=== PATIENT | female | born 1925 | race Caucasian/White ===

== ENCOUNTER 2016-11-03 11:57 | Inpatient (IN) | payer MEDICARE ==
[~2016-11-03] VITALS: Ht 165.1 cm; Wt 60.6 kg
[~2016-11-03 11:57] MED LIST: ACYC400T PO; ALLO300T2 PO; FAMO-119 PO; HYDR-22 PO; LORA10TA7 PO; METO50TA7 PO; MTP25TSR PO; QTP25T PO; SENN-36 PO; TRAZ-28 PO
--- OUTSIDE RECORDS SUMMARY | 2016-11-03 12:02 | XMS REPORT | Summary of Care ---
Author Author Bandar Matias M.D. 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 Start 23-Jul-2016 Active Allergies and Adverse Reactions Name Dates Details CeleBREX CAPS (Allergy) Status: Active Celecoxib CAPS (Allergy) Status: Active clindamycin (Allergy) Status: Active Demerol SOLN (Allergy) Status: Active Meperidine HCl TABS (Allergy) Status: Active Penicillins (Allergy) Status: Active Procedures Procedure Dates Details History of Tonsillectomy History of Venous Ligation With Stripping History of Reported Hx Of Knee Replacement - Right Procedures not documented Immunization Name Dates Details Immunizations not documented Family History Name Dates Details Family history of lung disease (V19.8, Z83.6) Status: Active Social History Name Dates Details - Status: Name Dates Details Former smoker Vital Signs Date Test Result Details 22-Jul-2016 14:46 Temperature 98.9 f Status: Comments: Method: Heart Rate 74 /min Status: Comments: Location: ; Weight 140 lb Status: Results Date Description Value Details Results not documented Plan of Care Name Dates Details Planned Observations Planned Goals not documented Instructions Name Dates Details Instructions not documented Encounters Appointment; Bandar Matias M.D. Encounter Diagnosis: Problem not documented On 23-Jul-2016 14:00 Appointment; Bandar Matias M.D. Encounter Diagnosis: Problem not documented On 22-Jul-2016 14:30
[2016-11-03] MEDS ORDERED: MULT-1034 PO (12:59)
[2016-11-03] MEDS ORDERED: PSYL660P17 PO (12:59)
[2016-11-03] MEDS ORDERED: METO-270 PO (12:59)
[2016-11-03 13:37] LABS: MEAN CORPUSCULAR HGB CONC 34.4 g/dL (31.0-37.0); MEAN CORPUSCULAR VOLUME 93 FL (80-100); MEAN PLATELET VOLUME 10.3 FL (6.0-9.5); PLATELET COUNT 108 10^3uL (150-450); WHITE BLOOD COUNT 3.77 10^3uL (4.0-11.0)
[2016-11-03 13:51] LABS: MEAN CORPUSCULAR HEMOGLOBIN 31.8 PG (26.0-34.0)
[2016-11-03 13:55] LABS: ALBUMIN 4.1 g/dL (3.4-5.0); ANION GAP 14.6 MEQ/L (3-15); CALCULATED IONIZED CALCIUM 4.1 mg/dL (3.8-4.6); TOTAL PROTEIN 6.7 g/dL (6.4-8.5)
--- NOTE | 2016-11-03 14:01 | Diagnostic Imaging Report ---
INDICATION: Shortness of breath. Frontal chest obtained at 1:38 p.m. and compared with 12/03/2011 Heart is mildly enlarged. Aorta is tortuous. There are mild chronic-appearing increased interstitial markings. There is no pneumothorax or pleural fluid. There is some infiltrate or scarring in the right base which appears chronic or recurrent compared with 12/03/2011. Severe underlying degenerative changes of both shoulders. IMPRESSION: Mild cardiomegaly with tortuous aorta. Chronic-appearing increased interstitial markings. There is some infiltrate or scarring in the right base which appears chronic or recurrent compared with 12/03/2011. Suggest followup as clinically warranted. Dictated by: Dictated on workstation # [id number]
[2016-11-03 14:16] LABS: BAND NEUTROPHILS % 56 % (0-6); EOSINOPHILS % 2 % (0-4); LYMPHOCYTES # 0.2 #; MONOCYTES # 0.1 #; MONOCYTES % 4 % (3-11); SEGMENTED NEUTROPHILS % 33 % (51-67); TOTAL CELLS COUNTED 100
[2016-11-03 14:18] LABS: RBC MORPH NORMAL (NORMAL)
--- NOTE | 2016-11-03 14:31 | NUR ---
up to bathroom without difficulty
[2016-11-03 14:38] LABS: BILIRUBIN,URINE Negative (Negative); CLARITY,URINE Clear; GLUCOSE, URINE (UA) Negative (Negative); LEUKOCYTE ESTERASE ,URINE Negative (Negative); UROBILINOGEN,URINE 0.2 mg/dL (0.2-1.0)
[2016-11-03 14:42] LABS: COLOR,URINE Dark Yellow
[2016-11-03 15:20] LABS: URINE CENTRIFUGED VOLUME 12 mL
[2016-11-03] MEDS ORDERED: cefTRIAXone SODIUM 1,000 MG in SODIUM CHLORIDE 50 ML IV ONE (15:45)
--- NOTE | 2016-11-03 16:27 | NUR ---
rounds made, pt denies needs.
[2016-11-03] MEDS ORDERED: AZITHROMYCIN VIAL 500 MG in SODIUM CHLORIDE 250 ML IV ONE (16:55)
--- NOTE | 2016-11-03 17:26 | NUR ---
yolanda notified at [phone]
--- NOTE | 2016-11-03 18:05 | NUR ---
Patient admitted to room 315 per cart from ER. She denies pain. O2 sat. on 2 liters at rest= 87-88%. O2 was increased to 3 liters NC and sat. was 90-92%. Frequent cough and complaint of generalized "ill" feeling.
[2016-11-03 18:37] VITALS: BP 144/96
[2016-11-03 18:39] VITALS: BP 144/96
[2016-11-03] MEDS ORDERED: MAGNESIUM HYDROXIDE 80MG/ML (MILK OF MAGNESIA) 30 ML UDC PO PRN (19:40)
[2016-11-03] MEDS ORDERED: PROMETHAZINE HCL INJ 12.5 MG in SODIUM CHLORIDE 25 ML IV PRN (19:40)
[2016-11-03] MEDS ORDERED: DOCUSATE SODIUM 100 MG (COLACE) CAP PO PRN (19:40)
[2016-11-03] MEDS ORDERED: ONDANSETRON 4 MG (ZOFRAN) ORAL DISSOLVE TAB PO PRN (19:40)
[2016-11-03] MEDS ORDERED: MAG HYDROX/AL HYDROX/SIMETH 200-200-20/5 ML (MAG-AL PLUS) 30 ML UDC PO PRN (19:40)
[2016-11-03] MEDS ORDERED: CALCIUM CARBONATE CHEWABLE 300 MG (TUMS) TABLET PO PRN (19:40)
[2016-11-03] MEDS ORDERED: POLYETHYLENE GLYCOL 17 GM (MIRALAX) PACKET PO PRN (19:40)
[2016-11-03] MEDS ORDERED: ALBUTEROL 0.083% NEB SOLUTION 2.5 MG/3 ML VIAL INH PRN (19:40)
[2016-11-03] MEDS ORDERED: ACETAMINOPHEN 325 MG TAB (TYLENOL) PO PRN (19:40)
--- NOTE | 2016-11-03 19:47 | History and Physical (E) ---
History & Physical /PCP: Allan Cornell MD CC: Dyspnea, cough HPI Jina Campbell is a 89 year old female admitted from ED 11/03 where she presented with complaint of shortness of breath. Daughter helps provide history. Onset of illness was with cold symptoms the 10/26. She had congestion, cough, rhinorrhea. Cough was productive of phlegm. Other family members as well as patient were around other people with similar illness. All got better except Mrs. Campbell. Took guaifenesin for her cough and congestion which helped some. No fever, chills. Poor sleep because of cough and congestion. Eventually got to feeling bad enough that she planned to see PCP in office today but ultimately decided to come to ED instead. In ED, HR 105, RR 22, BP high at 197/98. Afebrile. SpO2 97% on 2 L. Had a wet cough. WBC 3.77, Hgb 12.1, Plt 108. 33% N with 56% bands. Chemsitry notable for mild AST and ALT elevation, AlkP 107, bili 1.1. CRP 22.80. UA negative for UTI. Respiratory PCR panel was negative. Pro-BNP was 2140. CXR showed some chronic changes but some areas that might represent new atelectasis vs. pneumonia. In ED she was given ceftriaxone, azithromycin, and was admitted for further management. PMH * arthritis * constipation * pneumonia * hard of hearing * CLL (Sees Dr. 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 ALLERGIES: Please see list at end of report. HOME MEDICATIONS: Please see list at end of report. FH Mom of old age at 92. Father had lung cancer. SH Lives in her own home in [place]. 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 Daughter lives in [place]. Quit smoking at age 34. Occasional alcohol. No drugs. ROS CONSTITUTION: Weight stable. No fever. HEENT: No change in vision or hearing. Sore throat from cough. CV: No chest pain, palpitations. PULM: per HPI, exam. GI: No upset stomach, nausea, vomiting, constipation, or diarrhea. No blood in stool. : No dysuria. No blood in urine. MS: Arthritic pains NEURO: Generalized deconditioning. INTEG: No rashes, lesions, or sores. ENDO: No new heat or cold intolerance. HEME/LYMPH: No easy bruising or bleeding. No swollen glands. PSYCH: No change in mood or behavior. OBJECTIVE Vital Signs Date Time Temp Pulse Resp B/P Pulse Ox O2 Delivery O2 Flow Rate FiO2 11/03/16 18:39 98.5 104 24 144/96 90 Nasal cannula GEN: Awake, alert, interactive. Speaking in full sentences but has mild respiratory distress. HEENT: EOMI, clear sclerae, mildly dry oral mucosa. CV: Tachy, but regular without significant murmur. LUNGS: Diminished breath sounds with some wheezes throughout. ABD: Soft, NT/ND with normal bowel sounds. EXTR: Trace ankle edema. Normal peripheral pulses. Warm, dry, well-perfused. INTEG: No rash. Age related changes. Dry skin. NEURO: No focal motor neuro deficit. Laboratory Results-14 Days 11/03/16 12:20: Absolute Band Neutrophils 1.7, Alanine Aminotransferase (ALT/SGPT) 56, Albumin 4.1#, Albumin/Globulin Ratio 1.576, Alkaline Phosphatase 107, Anion Gap 14.6, Aspartate Amino Transf (AST/SGOT) 65H, BUN/Creatinine Ratio 36H, Band Neutrophils % 56H, Basophils # (Auto) , Basophils # (Manual) 0.0, Basophils % ( Manual) 0, Basophils (%) (Auto) , Blood Morphology Comment Normal, Blood Urea Nitrogen 18, C-Reactive Protein 22.80H, Calcium Level 9.1, Calcium/Ionized Calcium Ratio 4.1, Calculated Osmolality 271L, Carbon Dioxide Level 28, Chloride Level 98, Creatinine 0.50L, Differential Total Cells Counted 100, Eosinophils # 0.1, Eosinophils # (Auto) , Eosinophils % (Manual) 2, Eosinophils (%) (Auto) , Estimat Glomerular Filtration Rate 140.9, Estimated GFR (Non- 116.4, Glucose Level 197#H, Hematocrit 35.20, Hemoglobin 12.1, Lymphocytes # 0.2, Lymphocytes # (Auto) , Lymphocytes % (Manual) 5L, Lymphocytes (%) (Auto) , Mean Corpuscular Hemoglobin 31.8, Mean Corpuscular Hemoglobin Concent 34.4, Mean Corpuscular Volume 93, Mean Platelet Volume 10.3H , Metamyelocytes % 0, Monocytes # 0.1, Monocytes # (Auto) , Monocytes % (Manual ) 4, Monocytes (%) (Auto) , LP-Msy-B-Type Natriuretic Peptide 2140H, Neutrophils # 1.2, Neutrophils # (Auto) , Neutrophils (%) (Auto) , Platelet Count 108L, Potassium Level 4.3, Red Blood Count 3.80L, Red Cell Distribution Width 13.8, Segmented Neutrophils % 33L, Sodium Level 136, Total Bilirubin 1.1H , Total Protein 6.7, White Blood Count 3.77L 11/03/16 13:32: Adenovirus (PCR) Negative, Bordetella parapertussis DNA (PCR) Negative, Chlamydophila pneumoniae (PCR) Negative, Coronavirus Type 229E (PCR) Negative, Coronavirus Type HKU1 (PCR) Negative, Coronavirus Type NL63 (PCR) Negative, Coronavirus Type OC43 (PCR) Negative, Enterovirus/Rhinovirus (PCR) Negative, Human Metapneumovirus (PCR) Negative, Influenza Type A (H1) (PCR) Negative, Influenza Virus Type B (PCR) Negative, Mycoplasma pneumoniae (PCR) Negative, Parainfluenza Type 1 (PCR) Negative, Parainfluenza Type 2 (PCR) Negative, Parainfluenza Type 3 (PCR) Negative, Parainfluenza Type 4 (PCR) Negative, Respiratory Syncytial Virus (PCR) Negative 11/03/16 14:10: Urine Bacteria None seen, Urine Bilirubin Negative, Urine Clarity Clear, Urine Collection Type Clean catch, Urine Color Dark yellow, Urine Glucose (UA) Negative, Urine Ketones Negative, Urine Leukocyte Esterase Negative, Urine Mucus Rare, Urine Nitrite Negative, Urine Protein TraceH, Urine RBC 10-20H, Urine RBC (Auto) 1+H, Urine Specific [place] 1.015, Urine Squamous Epithelial Cells 2-5, Urine Urobilinogen 0.2, Urine WBC None seen, Urine pH 6.0, Volume Urine Centrifuged 12 ml MICRO 11/03 Resp PCR Panel Negative 11/03 Sputum culture PENDING 11/03 Blood culture PENDING IMAGING 11/03/16 CHEST 1 VIEW, AP/PA ONLY* INDICATION: Shortness of breath. Frontal chest obtained at 1:38 p.m. and compared with 12/03/2011 Heart is mildly enlarged. Aorta is tortuous. There are mild chronic-appearing increased interstitial markings. There is no pneumothorax or pleural fluid. There is some infiltrate or scarring in the right base which appears chronic or recurrent compared with 12/03/2011. Severe underlying degenerative changes of both shoulders. IMPRESSION: Mild cardiomegaly with tortuous aorta. Chronic-appearing increased interstitial markings. There is some infiltrate or scarring in the right base which appears chronic or recurrent compared with 12/03/2011. Suggest followup as clinically warranted. 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 She does not have a prior diagnosis of COPD or asthma but was felt to have bronchospasm on admit. She has a few chronic problems. PLAN * SIRS/Sepsis * Acute Respiratory Distress: Oxygen protocol. Acapella. * Community Acquired Pneumonia: Blood culture pending. Sputum pending. Resp PCR panel negative. Guaifenesin, ceftriaxone, azithromycin. * Bronchospasm: Duoneb scheduled, albuterol PRN. Consider prescribing at discharge. May need PFT. * Dehydration: Mild. NS bolus on admit. I&O, daily weight. * F/E/N: General diet. IVF as above. Peripheral IV. * Prophylaxis: Enoxaparin * Code Status: DNR * Dispo: Inpatient, expecting 3 day stay. May need skilled care. CHRONIC ISSUES * HTN: Metoprolol * Constipation: Bowel regimen * Insomnia: Quetiapine Allergies/Home Medications Allergies: Coded Allergies: Penicillins (Verified Allergy, Unknown, 11/03/16) celecoxib (Verified Allergy, Unknown, 11/03/16) clindamycin (Verified Allergy, Unknown, 11/03/16) iodine (Verified Allergy, Unknown, 11/03/16) meperidine (Verified Allergy, Unknown, 11/03/16) naproxen (Verified Allergy, Unknown, 11/03/16) Reported Home Medications Scheduled Metoprolol Succinate (Metoprolol Succinate) 25 MG PO DAILY (Reported) Mu-Vits-Min Th/Lycopene/Lutein (Centrum Silver Tablet) 1 EACH PO DAILY (Reported ) Psyllium Husk (Metamucil) 660 GM PO DAILY (Reported) Quetiapine Fumarate (Seroquel) 25 MG PO HS (Reported) Discontinued Medications Acyclovir (Acyclovir) 400 MG PO BID (Reported) Discontinued Reason: No longer required Allopurinol (Allopurinol) 300 MG PO DAILY (Reported) Discontinued Reason: No longer required Famotidine (Pepcid) 20 MG PO (Reported) Discontinued Reason: Unknown Loratadine (Loratadine) 10 MG PO DAILY (Reported) Discontinued Reason: No longer required Metoprolol Succinate (Toprol XL) 50 MG PO DAILY (Reported) Discontinued Reason: Dose changed Sennosides (Senokot) 8.6 MG PO BID (Reported) Discontinued Reason: No longer required Trazodone HCl (Trazodone HCl) 50 MG PO PRN (Reported) Discontinued Reason: No longer required Copies to: End of Report . FRANCHESCA JOHN MD Nov 03, 2016 19:47
[2016-11-03 20:21] VITALS: BP 153/97
[2016-11-03] MEDS: QUEtiapine 25 MG (SEROquel) TAB IMMEDIATE RELEASE PO SCH (20:22)
[2016-11-03] MEDS: guaiFENesin ER 600 MG (MUCINEX) TAB PO SCH (20:23)
[2016-11-03] MEDS: ALBUTEROL/IPRATROPIUM 3MG-0.5MG/3ML (DUONEB) NEB VIAL INH SCH (20:39)
--- NOTE | 2016-11-03 20:43 | NUR ---
Pt found lying in bed on 3 l/min NC, SPO2 94%, HR 112, RR 18 and non labored, BS fine wheezes throughout all lung weber before Duoneb via SVN which was tolerated well. BS unchanged post Tx
--- NOTE | 2016-11-04 | NUR ---
PT IV occluded; SL discontinued, catheter tip intact. IV attempts made by Lillian Marie RN and Kanika Browne RN, all unsuccessful. 22G started to LFA by Eber Perez RN on second attempt. IVF restarted.
[2016-11-04 00:20] VITALS: BP 126/70
[2016-11-04 06:02] VITALS: BP 134/74
--- NOTE | 2016-11-04 06:25 | NUR ---
PT rests in short intervals. Frequently awakened by coughing fits. Denies pain. Able to walk to with staff assist/walker. IVF infusing w/o difficulty. Resp even on 3L oxygen per nc.
[2016-11-04 06:26] LABS: MEAN CORPUSCULAR HGB CONC 33.9 g/dL (31.0-37.0); MEAN CORPUSCULAR VOLUME 94 FL (80-100); MEAN PLATELET VOLUME 9.9 FL (6.0-9.5); PLATELET COUNT 96 10^3uL (150-450); WHITE BLOOD COUNT 3.92 10^3uL (4.0-11.0)
[2016-11-04 06:46] LABS: ALBUMIN 3.5 g/dL (3.4-5.0); ANION GAP 12.6 MEQ/L (3-15); PHOSPHORUS 2.9 mg/dL (2.4-4.9)
[2016-11-04 06:49] LABS: MEAN CORPUSCULAR HEMOGLOBIN 31.9 PG (26.0-34.0)
[2016-11-04 07:13] LABS: BAND NEUTROPHILS % 22 % (0-6); EOSINOPHILS % 2 % (0-4); LYMPHOCYTES # 0.3 #; MONOCYTES # 0.1 #; MONOCYTES % 2 % (3-11); RBC MORPH NORMAL (NORMAL); SEGMENTED NEUTROPHILS % 66 % (51-67); TOTAL CELLS COUNTED 100
[2016-11-04] MEDS: ALBUTEROL/IPRATROPIUM 3MG-0.5MG/3ML (DUONEB) NEB VIAL INH SCH ×4 (07:27→20:47)
--- NOTE | 2016-11-04 07:30 | NUR ---
Pt awake/alert/oriented x4. IV SL. Remains on 3L nc.
[2016-11-04] MEDS: MULTIVITAMIN W/MINERALS (THERAGRAN M) TABLET PO SCH (08:45)
[2016-11-04] MEDS: PSYLLIUM SF (METAMUCIL) PACKET PO SCH (08:45)
[2016-11-04] MEDS: guaiFENesin ER 600 MG (MUCINEX) TAB PO SCH ×2 (08:45→21:09)
[2016-11-04] MEDS: ENOXAPARIN 30 MG/0.3 ML (LOVENOX) SYR SC SCH ×2 (08:46→08:49)
--- NOTE | 2016-11-04 09:51 | OT Therapy Evaluation (E) ---
POC Plan of Care Problems Identified: Activity Tolerance, ADLs, Balance, Lt UE Strength, Rt UE Strength, Safety Awareness Plan: Evaluation-OT, ADL/Self Care Management, Therapy Exercises, Therapy Activities, Pt/Family/Staff Education Frequency of OT: Five times weekly Duration of OT: 1 week Therapy to Include: ADL training, Balance with ADLs, Pt/family education, Therapeutic activities, UE strengthing Discharge Recommendations: TCU/Skilled NH Pt presents to occupational therapy with decreased strength, balance concerns and decreased ability to complete self care tasks. Pt would benefit from skilled occupational therapy to increase independence with self care tasks for return to prior level of function with increased safety awareness. Pt. Aware of Dx and Prognosis: Yes Pt. Aware of Risk & Benefit: Yes Goals: Discussed with patient Short Term Goals STG Time Frame: 4 Days Will Perform Grooming: With Setup/SBA Will Dress Upper Extremity: With Setup/SBA Will do Bathing: With Min Assistance Will do Toileting: With Min Assistance Will Perform Funct Transfer: With Min Assistance STG #1 Pt will participate in 10 min of ther-ex with use of energy conservation techniques as needed. Penitentiary Goals LTG Time Frame: 7 Days Will Dress Upper Extremity: Independently Will Dress Lower Extremity: With Setup/SBA Will do Tub/Shower Transfer: With Setup/SBA Will Bathe Self: With Setup/SBA Will do Toilet Transfers: With Setup/SBA Will do Toilieting: With Setup/SBA Inital Evaluation/General Service Date/Time 11/04/16, 09:42 Primary Diagnosis: (1) Upper respiratory infection ICD Code: J06.9 Treatment Diagnosis: (1) Weakness ICD Code: R53.1 Onset Date: 10/26/16 Start of Care Date: Nov 04, 2016 Precaution/Isolation: Standard Precautions Fall Level: High Risk 51 or greater Resuscitation Status: Full Code Reason for Referral: Evaluation and Treat History Comment PMH of arthritis, constipation, pneumonia, hard of hearing, CLL, HTN, insomnia Pain Level: 0 Oxygen Needed: Nasal cannula O2 liters/minute: 3 Rehabilitation Potential: Good Potential Based On Patient's willingness to participate in therapy Rational for Skilled Treatment: Allow return to home, Deconditioning, Maximize Safety Living Status Prior to Admit: Alone ([facility]ives [facility] [place]. ) Prior Level of Function: Independent ADLs Prior to onset, pt completed all ADL's independently. Pt reports difficulty with manipulating everyday containers/jars. Reports using assistive devices and family to help. Pt completes simple IADL tasks of cooking, cleaning, medication management and shopping. Pt still drives. Plans Following Discharge: Return Home Support Persons: Adult Child (Has a daugther who lives in the area.) Entry Into Home: Level Entry Shower and Tub Type: Walk in/curtain-grab bars Assist Devices: SPC, 4 WW Toilet Type: Raised with grab bars Comment Pt uses a FWW in the home and a SPC in the community. Pt reports a history of 2 falls and no falls within the last six months. Pt wears a LifeAlert. Current Function Assessment Mental Status Patient Orientation: Person Mental Status: Alert Cognition Attention: Intact Memory: Impaired Safety/Judgement: Impaired Visual/Perceptual Skills Glassess: Yes (Lined trifocals ) Hearing: Impaired (Pt hard of hearing ) Hand Dominance Hand Dominance: Right ROM/Strength Range of Motion : ROM: Shoulder Limited ROM Comment Limited shoulder AROM secondary to arthritis. Grossly 80 degrees of shoulder flexion. Able to complete elbow flexion and extension. Strength Comment Elbow flexion and extension of BUE's of 4-/5 Neurological Coordination: Minimally impaired Endurance Activity Endurance: Becomes SOB, Needs energy saving techn Bed Mobility/Transfers Sit to Stand: Moderate assist Chair Transfer: Moderate assist Sitting Balance: WFL ADLs Grooming: Grooming Status: Minimum assist Dressing Dressing: Minimum assist Bathing Shower/Bench Transfer Ability: Moderate assist Bathing- Type of Assistance: Minimum Assist Toileting Toilet Hygiene: Moderate Assist Toilet Transfer Ability: Moderate assist Additional Assessment/Comments Pt presents with decreased strength, decreased safety awareness, decreased activity tolerance, decreased independence with self care tasks including dressing, bathing, toileting and grooming. Pt's comorbidity of arthritis affects patient's occupational performance. Pt demonstrates a moderate complexity due to performance deficits resulting in participation restrictions and requiring moderate assistance and safety cueing during the evaluation. CPT/G Codes Time In: 9:20 Time Out: 9:45 Total Minutes: 15 (11/15 eval) Codes/Minutes: 21418 Eval< 15 minutes TERRELL LOBO OT Nov 04, 2016 09:51
[2016-11-04 12:00] VITALS: BP 138/78
--- NOTE | 2016-11-04 12:30 | NUR ---
Pt remains on 3L nc. Daughter, Jo-Ann at bedside. Dr. Curiel at bedside for rounds.
[2016-11-04] MEDS ORDERED: PROMETHAZINE/CODEINE SYRUP 6.25MG-10MG/5ML (PHENERGAN W/COD) UDC PO PRN (12:40)
--- NOTE | 2016-11-04 15:05 | Physical Therapy Evaluation(E) ---
Plan of Care STG: Plan-Treatment Functional: Trans. Safe w/ AD STG Time Frame: 2 Days LTG Time Frame: 4 Days Goals Discussed/Agreed: Yes Plan: Gait & Transfer Training, Neuro Re-Education, Progressive Ambulation, Strengthening, Transfer Training, Therapy Excercise Discharge Recommendations: Home Independently (Additional therapy services recommended for strengthening and activity tolerance. ) Aware of Dx and Prognosis: Yes Aware of Risk & Benefit: Yes To be Seen: Daily Wednesday-Wednesday Initial Evaluation Service Date/Time 11/04/16, 15:04 Primary Diagnosis: (1) Upper respiratory infection ICD Code: J06.9 Treatment Diagnosis: (1) Community acquired pneumonia ICD Code: J18.9 (2) Sepsis ICD Code: A41.9 (3) SIRS (systemic inflammatory response syndrome) ICD Code: R65.10 (4) Weakness ICD Code: R53.1 Onset Date: 11/03/2016 Start of Care Date: Nov 04, 2016 Resuscitation Status: Full Code Precaution/Isolation: Standard Precautions Fall Level: High Risk 51 or greater Initial Assessment Reason for Rehab: Increase Mobility, Increase Strength, Increase Balance, Increase Transfers, Increase Endurance Medical History: Other (OA, pneumonia, CLL, HTN, insomnia. ) Pain Location/Comment Patient denies pain just reports fatigue. Prior Level of Function The patient lives in her own home. Still driving, independent with ADLS, cooking. Rehabilitation Potential: Fair (Patient was independent prior to hostpial admission. ) Distance Walked in Feet Patient refused to ambulate this date secondary to fatigue. ROM/Strength Hip Mobility: Right Hip Strength: 3 Left Hip Strength: 3 Knee Flexion Mobility: Right Knee Flexion Strength: 4 Left Knee Flexion Strength: 4 Knee Extension Mobility: Right Knee Extension Strength: 4 Left Knee Extension Strength: 4 Ankle Mobility: Right Ankle Strength: 4 Left Ankle Strength: 4 Assessment/Goals Initial Transfer Assessment Rolling: Not Assessed/NA Sit-Supine: Not Assessed/NA Sitting Edge of Bed: Not Assessed/NA Supine-Sit: Not Assessed/NA Sit-Stand from Bed: Not Assessed/NA Stand-Sit: Not Assessed/NA Ambulation: Not Assessed/NA (Patient refused to ambulate. ) Transfer Short Term Goals Rolling: Contact Guard Assist Sit-Supine: Minimal Assistance Sitting Edge of Bed: Contact Guard Assist Supine-Sit: Contact Guard Assist Sit-Stand from bed: Contact Guard Assist Stand-Sit: Contact Guard Assist Ambulation: Contact Guard Assist Distance to Walk in Feet A minimum of 50 feet x 2 with FWW on appropriate 02 level. Transfer [employer] Plant Supervisor Goals Rolling: Modified [place] Sit-Supine: Modified [place] Sitting Edge of Bed: Complete [place] Supine-Sit: Modified [place] Sit-Stand from bed: Supervision or setup Stand-Sit: Supervision or setup Ambulation: Supervision or setup Distance to Walk in Feet A minimum of 150 feet with FWW on appropriate 02 level. Coding Time In: 1400 Time Out: 1453 Total Minutes: 13 Code & Unit: 15732 Eval< 30 min GORDON MEHTA PT Nov 04, 2016 15:05
[2016-11-04 15:42] VITALS: BP 138/82
[2016-11-04] MEDS: cefTRIAXone SODIUM 1,000 MG in SODIUM CHLORIDE 50 ML IV SCH (17:00)
--- NOTE | 2016-11-04 17:26 | NUR ---
Pt. was anxious and SOA this AM. SOA decreasing this PM, also anxiety decreasing. O2 still at 2L nc, will attempt weaning tomorrow. Loose NPC today. BS coarse bilaterally, improving during the day.
--- NOTE | 2016-11-04 17:44 | Progress Note-A/P (E) ---
Progress Note Subjective: Patient is resting in bed quietly. Daughter is at bedside. Discussed current findings. Questions answered. Daughter has a DNR to have signed for the patient. Discussed with the daughter. When I returned to the patient's room to discuss with her she was in the bathroom. Will discuss with patient upon my next visit. Objective: Current Medications Metoprolol Succinate 25 mg DAILY PO Quetiapine 25 mg HS PO Multivitamins/ Minerals Therapeutic 1 ea DAILY@0800 PO Psyllium Hydrophilic Mucilloid 1 each DAILY PO Albuterol/ Ipratropium 3 ml RTQID INH Albuterol Sulfate 0.083% Neb Solution 2.5 mg Q4H PRN INH Guaifenesin 1,200 mg BID PO Ceftriaxone Q24H IV Azithromycin Q24H IV Acetaminophen 650 mg Q6H PRN PO Calcium Carbonate 300 mg Q8H PRN PO Al Hydrox/Mg Hydrox/Simethicone 30 ml Q6H PRN PO Ondansetron 4 mg Q6HR PRN PO Promethazine Q6H PRN IV Magnesium Hydroxide 30 ml DAILY PRN PO Polyethylene Glycol 17 gm DAILY PRN PO Docusate 100 mg BID PRN PO Enoxaparin 30 mg DAILY SC Promethazine 2.5 ml HS PRN PO Vital Signs Date Time Temp Pulse Resp B/P Pulse Ox O2 Delivery O2 Flow Rate FiO2 11/04/16 15:42 98.4 88 22 138/82 97 Room air I & O Past 24 hrs 11/04/16 07:00 Intake Total 350 ml Output Total 1200 ml Balance -850 ml Intake Oral 350 ml Output Urine Total 1200 ml # Bowel Movements 1 Physical Exam General--Awake and alert. No distress. HEENT--Normocephalic. MMM in oral cavity.NC in place. Lungs--Wheezes through out. Coarse bases bilaterally. Nonlabored respirations. Heart--RRR. No murmurs. Abdomen--Normal bowel sounds. Soft. Nondistended. Nontender. Extremities--Trace edema in lower extremities. Past 24 hour Lab Results 11/04/16 06:00 Laboratory Results Past 24 Hrs 11/04/16 06:00: Absolute Band Neutrophils 0.7, Albumin 3.5, Anion Gap 12.6, Band Neutrophils % 22, Basophils # (Auto) , Basophils # (Manual) 0.0, Basophils % (Manual) 0, Basophils (%) (Auto) , Blood Morphology Comment Normal, Blood Urea Nitrogen 15, Calcium Level 8.9, Carbon Dioxide Level 30, Chloride Level 103, Creatinine 0.50 , Differential Total Cells Counted 100, Eosinophils # 0.1, Eosinophils # (Auto) , Eosinophils % (Manual) 2, Eosinophils (%) (Auto) , Estimat Glomerular Filtration Rate 140.9, Estimated GFR (Non- 116.4, Glucose Level 113, Hematocrit 32.70, Hemoglobin 11.1, Lymphocytes # 0.3, Lymphocytes # (Auto) , Lymphocytes % (Manual) 8, Lymphocytes (%) (Auto) , Magnesium Level 2.0, Mean Corpuscular Hemoglobin 31.9, Mean Corpuscular Hemoglobin Concent 33.9, Mean Corpuscular Volume 94, Mean Platelet Volume 9.9, Monocytes # 0.1, Monocytes # ( Auto) , Monocytes % (Manual) 2, Monocytes (%) (Auto) , Neutrophils # 2.6, Neutrophils # (Auto) , Neutrophils (%) (Auto) , Phosphorus Level 2.9, Platelet Count 96, Potassium Level 4.3, Red Blood Count 3.48, Red Cell Distribution Width 13.9, Segmented Neutrophils % 66, Sodium Level 141, White Blood Count 3.92 Microbiology 11/03/16 Gram Stain - Final, Resulted 11/03/16 Sputum Culture - Preliminary, Resulted Imaging Results 11/03/16 CXR IMPRESSION: Mild cardiomegaly with tortuous aorta. Chronic-appearing increased interstitial markings. There is some infiltrate or scarring in the right base which appears chronic or recurrent compared with 12/03/2011. Suggest followup as clinically warranted. Assessment/Plan Sepsis Secondary to CAP. Treatment below. Acute Respiratory Failure Wean oxygen per protocol. Acapella. Treat pneumonia. Community Acquired Pneumoni Blood cultures pending. Sputum culture showed normal abelino. Resp PCR panel negative. Continue guaifenesin, ceftriaxone, and azithromycin. Adding phenergan/codeine at bedtime per patient's request. Bronchospasm Duoneb scheduled, albuterol PRN. Consider prescribing at discharge. May need PFT. HTN Metoprolol per home dose. Constipation Bowel regimen per home dose. Insomnia Quetiapine per home dose. FEN General diet. IVF provided on admission. I/O's and daily weights. Peripheral IV. Electrolytes are normal. Prophylaxis Enoxaparin. Code Status DNR. Dispo Inpatient for above. Continue to wean oxygen. May need skilled care. RICKIE MATHIS MD Nov 04, 2016 17:44
[2016-11-04] MEDS: AZITHROMYCIN VIAL 500 MG in SODIUM CHLORIDE 250 ML IV SCH (17:45)
--- NOTE | 2016-11-04 19:39 | NUR ---
Daughter at bedside- while eating supper meal, patient started coughing with food in her mouth. Daughter witnessed episode- states "she didn't choke." but patient states she did choke. VSS- no c/o at this time.
[2016-11-04 19:46] VITALS: BP 126/63
--- NOTE | 2016-11-04 20:00 | NUR ---
Resting in chair. Skin warm and dry. Color sl pale. Oxygen remains on at 3 liters per n/c. Respirations even and non-labored at this time. Patient had a small choking spell at mealtime. No issues at this time. Drinking fluids without difficulty. No further choking spells. No concerns at this time.
--- NOTE | 2016-11-04 20:50 | NUR ---
Pt found on 3 l/min NC while sitting in her chair, SPO2 98%, HR 81, RR 16 and non labored with crackles before and after Duoneb. Pt has a loose NPC.
[2016-11-04] MEDS ORDERED: guaiFENesin ER 600 MG (MUCINEX) TAB PO SCH (21:00)
[2016-11-04] MEDS: QUEtiapine 25 MG (SEROquel) TAB IMMEDIATE RELEASE PO SCH (21:09)
[2016-11-04 23:58] VITALS: BP 145/66
--- NOTE | 2016-11-05 | NUR ---
Patient assisted to bathroom. Voided without difficulty. Moves slowly. Slightly SOA with ambulation. Oxygen remains on.
[2016-11-05 04:51] VITALS: BP 160/85
--- NOTE | 2016-11-05 05:42 | NUR ---
Patient rested at long intervals tonight. Respirations even and non-labored. Slightly confused this morning. Re-orients easily. No needs this morning per patient.
[2016-11-05 06:45] LABS: ALBUMIN 2.9 g/dL (3.4-5.0)
[2016-11-05 06:46] LABS: MEAN CORPUSCULAR HGB CONC 33.3 g/dL (31.0-37.0); MEAN CORPUSCULAR VOLUME 94 FL (80-100); PLATELET COUNT 90 10^3uL (150-450); WHITE BLOOD COUNT 4.39 10^3uL (4.0-11.0)
[2016-11-05 07:12] LABS: MEAN CORPUSCULAR HEMOGLOBIN 31.3 PG (26.0-34.0)
[2016-11-05 07:32] LABS: BAND NEUTROPHILS % 5 % (0-6); EOSINOPHILS % 4 % (0-4); LYMPHOCYTES # 0.3 #; MONOCYTES # 0.1 #; MONOCYTES % 2 % (3-11); RBC MORPH NORMAL (NORMAL); SEGMENTED NEUTROPHILS % 81 % (51-67); TOTAL CELLS COUNTED 100
--- NOTE | 2016-11-05 07:38 | NUR ---
Pt transferred 1 SBA from bed to chair using walker. Hearing aides and glasses on. Combing hair while in chair. Persistent cough this AM, audible inspiratory wheezes. Camryn RT notified. Remains on 3L nc. Checking VS.
[2016-11-05] MEDS: ALBUTEROL/IPRATROPIUM 3MG-0.5MG/3ML (DUONEB) NEB VIAL INH SCH ×4 (07:41→20:41)
[2016-11-05 08:34] VITALS: BP 146/65
[2016-11-05] MEDS: PSYLLIUM SF (METAMUCIL) PACKET PO SCH (08:54)
[2016-11-05] MEDS: guaiFENesin ER 600 MG (MUCINEX) TAB PO SCH ×2 (08:54→20:59)
[2016-11-05] MEDS: MULTIVITAMIN W/MINERALS (THERAGRAN M) TABLET PO SCH (08:55)
[2016-11-05] MEDS: ENOXAPARIN 30 MG/0.3 ML (LOVENOX) SYR SC SCH (08:55)
--- NOTE | 2016-11-05 09:06 | Progress Note-A/P (E) ---
Progress Note Subjective: Patient is up to chair. No family at bedside during my visit. She feels she is somewhat improved from her admission. She plans to go home to her house. She states her family will be staying with her. Objective: Current Medications Metoprolol Succinate 25 mg DAILY PO Quetiapine 25 mg HS PO Multivitamins/ Minerals Therapeutic 1 ea DAILY@0800 PO Psyllium Hydrophilic Mucilloid 1 each DAILY PO Albuterol/ Ipratropium 3 ml RTQID INH Albuterol Sulfate 0.083% Neb Solution 2.5 mg Q4H PRN INH Guaifenesin 1,200 mg BID PO Ceftriaxone Q24H IV Azithromycin Q24H IV Acetaminophen 650 mg Q6H PRN PO Calcium Carbonate 300 mg Q8H PRN PO Al Hydrox/Mg Hydrox/Simethicone 30 ml Q6H PRN PO Ondansetron 4 mg Q6HR PRN PO Promethazine Q6H PRN IV Magnesium Hydroxide 30 ml DAILY PRN PO Polyethylene Glycol 17 gm DAILY PRN PO Docusate 100 mg BID PRN PO Enoxaparin 30 mg DAILY SC Promethazine 2.5 ml HS PRN PO Vital Signs Date Time Temp Pulse Resp B/P Pulse Ox O2 Delivery O2 Flow Rate FiO2 11/05/16 08:34 98.0 102 20 146/65 94 Nasal cannula 3.00 I & O Past 24 hrs 11/05/16 07:00 Intake Total 3236 ml Output Total 2500 ml Balance 736 ml Intake Oral 2239 ml IV Total 997 ml Output Urine Total 2500 ml Physical Exam General--Awake and alert. No distress. HEENT--Normocephalic. MMM in oral cavity.NC in place. Lungs--Wheezes through out. Coarse bases bilaterally. Nonlabored respirations. Heart--RRR. No murmurs. Abdomen--Normal bowel sounds. Soft. Nondistended. Nontender. Extremities--Trace edema in lower extremities. Past 24 hour Lab Results 11/05/16 05:45 Laboratory Results Past 24 Hrs 11/05/16 05:45: Absolute Band Neutrophils 0.2, Albumin 2.9, Anion Gap 11.0, Band Neutrophils % 5 , Basophils # (Auto) , Basophils # (Manual) 0.0, Basophils % (Manual) 0, Basophils (%) (Auto) , Blood Morphology Comment Normal, Blood Urea Nitrogen 16, C-Reactive Protein 18.30, Calcium Level 8.6, Carbon Dioxide Level 30, Chloride Level 106, Creatinine 0.60, Differential Total Cells Counted 100, Eosinophils # 0.2, Eosinophils # (Auto) , Eosinophils % (Manual) 4, Eosinophils (%) (Auto) , Estimat Glomerular Filtration Rate 114.2, Estimated GFR (Non- 94.4, Glucose Level 113, Hematocrit 30.90, Hemoglobin 10.3, Lymphocytes # 0.3, Lymphocytes # (Auto) , Lymphocytes % (Manual) 8, Lymphocytes (%) (Auto) , Magnesium Level 2.0, Mean Corpuscular Hemoglobin 31.3, Mean Corpuscular Hemoglobin Concent 33.3, Mean Corpuscular Volume 94, Mean Platelet Volume 10.0, Monocytes # 0.1, Monocytes # (Auto) , Monocytes % (Manual) 2, Monocytes (%) ( Auto) , Neutrophils # 3.6, Neutrophils # (Auto) , Neutrophils (%) (Auto) , Phosphorus Level 3.0, Platelet Count 90, Potassium Level 4.1, Red Blood Count 3.29, Red Cell Distribution Width 13.9, Segmented Neutrophils % 81, Sodium Level 142, White Blood Count 4.39 Microbiology 11/03/16 Blood Culture - Preliminary, Resulted No Growth in 24 hours 11/03/16 Gram Stain - Final, Resulted 11/03/16 Sputum Culture - Preliminary, Resulted Imaging Results 11/03/16 CXR IMPRESSION: Mild cardiomegaly with tortuous aorta. Chronic-appearing increased interstitial markings. There is some infiltrate or scarring in the right base which appears chronic or recurrent compared with 12/03/2011. Suggest followup as clinically warranted. Assessment/Plan Sepsis Secondary to CAP. Treatment below. Acute Respiratory Failure Wean oxygen per protocol. Acapella. Treat pneumonia. Community Acquired Pneumoni Blood cultures pending. Sputum culture showed normal abelino. Resp PCR panel negative. Continue guaifenesin, ceftriaxone, and azithromycin.Phenergan/codeine at bedtime per patient's request. Bronchospasm Duoneb scheduled, albuterol PRN. Consider prescribing at discharge. PFT's as an outpatient. HTN Metoprolol per home dose. Constipation Bowel regimen per home dose. Insomnia Quetiapine per home dose. FEN General diet. IVF provided on admission. I/O's and daily weights. Peripheral IV. Electrolytes are normal. Prophylaxis Enoxaparin. Code Status DNR. Dispo Inpatient for above. Continue to wean oxygen. Patient is not interested in skilled care. RICKIE MATHIS MD Nov 05, 2016 09:05
--- NOTE | 2016-11-05 11:58 | OT Daily Note Inpatient (E) ---
OT Daily Treatment Service Date/Time 11/05/16, 11:47 Primary Diagnosis: (1) Upper respiratory infection ICD Code: J06.9 Treatment Diagnosis: (1) Weakness ICD Code: R53.1 Onset Date: 10/26/16 Start of Care Date: Nov 04, 2016 Precaution/Isolation: Standard Precautions Fall Level: High Risk 51 or greater Resuscitation Status: Full Code Current Activity: Agrees to participate, Pleasant & cooperative I cant do anything with my arms. I have spurs on my R shoulder. Im not going home with 02, I wont be able to manage it Pain Location/Comment shoulder with activity Oxygen Needed: Nasal cannula O2 liters/minute: 2 Current Function Assessment Cognition Attention: Intact Memory: Impaired Safety/Judgement: Impaired Visual/Perceptual Skills Glassess: Yes (Lined trifocals ) Hearing: Impaired (Pt hard of hearing ) Hand Dominance Hand Dominance: Right Endurance Activity Endurance: Becomes SOB, Needs energy saving techn (diaphragmatic breathing education and practice) Bed Mobility/Transfers Sit to Stand: CGA Chair Transfer: CGA Dressing Comment Pt unwilling to perform grooming. Treatments Strengthening Exercise Upper Extremity Strength Exerc : Upper Extremity: Bilateral Exercise Type: AROM, PROM Other Repetitions pt tolerated on 5 reps of each exercises due to pain and needed rest breaks between sets. Scapular, shoulder, neck and UE in low planes only. Pt very limited in what she will attempt Amount of Resistance: 0 lbs Education/Assessment Education Provided: Energy conservation (moving kitchen items within reach and not standing on stools, organizing day,) Education Evalution: Demonstrate understanding Teaching Method: Verbal Readiness to Learn: Fair Treatment Tolerance: Luther trmnt w/ complaints Problems Impacting Treatment: Deconditioning, Needs freq rest breaks Rehabilitation Potential: Good pt is very cautious in what she will do but was pleasant during tx. Pt was able to work on diaphragmatic breathing and 02 stats were 94% with deep breathing. 90 % after functional mobility from chair to hallway and back. POC Plan of Care Problems Identified: Activity Tolerance, ADLs, Balance, Lt UE Strength, Rt UE Strength, Safety Awareness Plan: Evaluation-OT, ADL/Self Care Management, Therapy Exercises, Therapy Activities, Pt/Family/Staff Education Frequency of OT: Five times weekly Duration of OT: 1 week Therapy to Include: ADL training, Balance with ADLs, Pt/family education, Therapeutic activities, UE strengthing Discharge Recommendations: TCU/Skilled NH Pt. Aware of Dx and Prognosis: Yes Pt. 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
[2016-11-05 12:35] VITALS: BP 146/77
--- NOTE | 2016-11-05 14:59 | PT Daily Note Inpatient (E) ---
PT Daily Treatment Service Date/Time 11/05/16, 14:46 Medical Diagnosis: (1) Upper respiratory infection ICD Code: J06.9 Physical Therapy: (1) Community acquired pneumonia ICD Code: J18.9 (2) Sepsis ICD Code: A41.9 (3) SIRS (systemic inflammatory response syndrome) ICD Code: R65.10 (4) Weakness ICD Code: R53.1 Precaution/Isolation: Standard Precautions Resuscitation Status: Full Code Fall Level: High Risk 51 or greater Subjective Pt not happy about PT "but I will try" Oxygen Delivery: Nasal cannula O2 liters/minute: 1 Treatments Sit, Stand, Supine: Long Sitting Extremity: Both Lower Extremity Assistance: AROM Repetition: 1 x 10 Exercise: AP, Heel Slides, Hip Abduction, LAQ, External Rotation, Internal Rotation Comment pt c/o the "feeling of back spasms coming on" Gait Refused ambulation at this time "I don't want to do this, I'm tired and feel my back spasms are coming on" Education/Plan Assessment Tolerated chair exercises well, will progress as tolerated Safety Awareness: Not tested Plan Cont POC, progress strengthening and gait Patient will be seen: Daily Wednesday-Wednesday Discharge Recommendations: TCU/Skilled NH Coding Time In: 1423 Time Out: 1437 Total Minutes: 14 Codes/Units: 62229 Exercise Therp Uma m JADYN SMITH GRADES 1 6 TUTOR Nov 05, 2016 14:59
[2016-11-05 15:57] VITALS: BP 154/76
--- NOTE | 2016-11-05 16:05 | NUR ---
Dr. Curiel at bedside for rounds.
[2016-11-05] MEDS: cefTRIAXone SODIUM 1,000 MG in SODIUM CHLORIDE 50 ML IV SCH (17:08)
[2016-11-05] MEDS: AZITHROMYCIN VIAL 500 MG in SODIUM CHLORIDE 250 ML IV SCH (17:29)
[2016-11-05 19:58] VITALS: BP 132/69
[2016-11-05] MEDS: QUEtiapine 25 MG (SEROquel) TAB IMMEDIATE RELEASE PO SCH (20:58)
[2016-11-06 00:22] VITALS: BP 147/78
[2016-11-06 04:00] VITALS: BP 136/72
[2016-11-06 06:30] LABS: BASOPHILS % (AUTO) 0 % (0-2); EOSINOPHILS # (AUTO) 0.2 10^3uL; EOSINOPHILS % (AUTO) 4 % (0-4); LYMPHOCYTES # (AUTO) 0.4 X10^3; MEAN CORPUSCULAR HEMOGLOBIN 30.5 PG (26.0-34.0); MEAN CORPUSCULAR HGB CONC 32.6 g/dL (31.0-37.0); MEAN CORPUSCULAR VOLUME 94 FL (80-100); MEAN PLATELET VOLUME 10.2 FL (6.0-9.5); MONOCYTES # (AUTO) 0.1 X10^3; MONOCYTES % (AUTO) 3 % (3-11); NEUTROPHILS # (AUTO) 3.4 X10^3; NEUTROPHILS % (AUTO) 84 % (51-67); PLATELET COUNT 94 10^3uL (150-450); WHITE BLOOD COUNT 4.07 10^3uL (4.0-11.0)
[2016-11-06 06:40] LABS: ANION GAP 9.6 MEQ/L (3-15); MAGNESIUM* 1.9 mg/dL (1.6-2.3); PHOSPHORUS 3.6 mg/dL (2.4-4.9)
[2016-11-06] MEDS: ALBUTEROL/IPRATROPIUM 3MG-0.5MG/3ML (DUONEB) NEB VIAL INH SCH ×4 (07:38→19:29)
[2016-11-06] MEDS: ENOXAPARIN 30 MG/0.3 ML (LOVENOX) SYR SC SCH (07:41)
[2016-11-06 08:21] VITALS: BP 160/79
[2016-11-06] MEDS: guaiFENesin ER 600 MG (MUCINEX) TAB PO SCH ×2 (08:26→20:17)
[2016-11-06] MEDS: PSYLLIUM SF (METAMUCIL) PACKET PO SCH (08:26)
[2016-11-06] MEDS: MULTIVITAMIN W/MINERALS (THERAGRAN M) TABLET PO SCH (08:26)
--- NOTE | 2016-11-06 11:41 | PT Daily Note Inpatient (E) ---
PT Daily Treatment Service Date/Time 11/06/16, 11:31 Medical Diagnosis: (1) Upper respiratory infection ICD Code: J06.9 Physical Therapy: (1) Community acquired pneumonia ICD Code: J18.9 (2) Sepsis ICD Code: A41.9 (3) SIRS (systemic inflammatory response syndrome) ICD Code: R65.10 (4) Weakness ICD Code: R53.1 Precaution/Isolation: Standard Precautions Resuscitation Status: Full Code Fall Level: High Risk 51 or greater Subjective Pt sitting in recliner. Frustrated that she keeps coughing.. States she does not want to walk due to coughing but also because she doesn't want to have back spasms. Pt reports that she walks over to the window and back when she goes to the bathroom. Pt agrees to a few exercises in the recliner as long as they don' t cause back spasms. Oxygen Delivery: Nasal cannula O2 liters/minute: 1L Treatments Sit, Stand, Supine: Sitting, Long Sitting Extremity: Both Lower Extremity Assistance: AROM Repetition: 1 x 10 Exercise: AP, Heel Slides, Hip Abduction, LAQ, Hip Flexion Education/Plan Assessment Pt very anxious about doing anything that might cause back spasms. Plan Patient will be seen: Daily Wednesday-Wednesday Discharge Recommendations: TCU/Skilled NH Coding Time In: 11:20 Time Out: 11:33 Total Minutes: 13 Codes/Units: 90758 Neurmus Exer 15 min Aaron Metz CULINARY INTERN Nov 06, 2016 11:41
[2016-11-06] MEDS ORDERED: PSYLLIUM SF (METAMUCIL) PACKET PO ONE (11:45)
[2016-11-06 11:54] VITALS: BP 158/82
[2016-11-06] MEDS ORDERED: PSYLLIUM SF (METAMUCIL) PACKET ONE (12:53)
--- NOTE | 2016-11-06 13:22 | NUR ---
1200-Up in chair for breakfast. Denies any needs at this time.
--- NOTE | 2016-11-06 13:45 | OT Daily Note Inpatient (E) ---
OT Daily Treatment Service Date/Time 11/06/16, 13:40 Primary Diagnosis: (1) Upper respiratory infection ICD Code: J06.9 Treatment Diagnosis: (1) Weakness ICD Code: R53.1 Onset Date: 10/26/16 Start of Care Date: Nov 04, 2016 Precaution/Isolation: Standard Precautions Fall Level: High Risk 51 or greater Resuscitation Status: Full Code Current Activity: Agrees to participate, Up in chair My shoulder just wont do exercises. No I dont want to walk. no i dont want to groom or toilet. Oxygen Needed: Nasal cannula O2 liters/minute: 1L Current Function Assessment Cognition Attention: Intact Memory: Impaired Safety/Judgement: Impaired Visual/Perceptual Skills Glassess: Yes (Lined trifocals ) Hearing: Impaired (Pt hard of hearing ) Hand Dominance Hand Dominance: Right Endurance Activity Endurance: Deep breathing, Instructions provided, Needs energy saving techn (given for dressing), Requires freq rest breaks ADLs Hand : Feeding Types of Assist Tools: Built up utensil (Pt states she uses and electric sponon for tremors. Offer plate guard, hand help bowl and mug to increase ease of eating and all were rejected.) Treatments Strengthening Exercise Upper Extremity Strength Exerc : Upper Extremity: Bilateral Exercise Type: AROM Repetitions: 10 X 1 Amount of Resistance: 0 lbs (Pt would not use resistance. A"ROm in low planes, shoulder and neck exercises) Education/Assessment Education Provided: Energy conservation (moving kitchen items within reach and not standing on stools, organizing day,) Education Evalution: Demonstrate understanding Teaching Method: Verbal Readiness to Learn: Fair Treatment Tolerance: Luther trmnt w/ complaints Problems Impacting Treatment: Deconditioning, Needs freq rest breaks Rehabilitation Potential: Good Poor motivation coughing more POC Plan of Care Problems Identified: Activity Tolerance, ADLs, Balance, Lt UE Strength, Rt UE Strength, Safety Awareness Plan: Evaluation-OT, ADL/Self Care Management, Therapy Exercises, Therapy Activities, Pt/Family/Staff Education Frequency of OT: Five times weekly Duration of OT: 1 week Therapy to Include: ADL training, Balance with ADLs, Pt/family education, Therapeutic activities, UE strengthing Discharge Recommendations: TCU/Skilled NH Pt. Aware of Dx and Prognosis: Yes Pt. Aware of Risk & Benefit: Yes Goals: Discussed with patient Short Term Goals STG Time Frame: 4 Days Will Perform Grooming: With Setup/SBA Will Dress Upper Extremity: With Setup/SBA Will do Bathing: With Min Assistance Will do Toileting: With Min Assistance Will Perform Funct Transfer: With Min Assistance (CGA) STG #1 Pt will participate in 10 min of ther-ex with use of energy conservation techniques as needed.MET [facility] Goals LTG Time Frame: 7 Days Will Dress Upper Extremity: Independently Will Dress Lower Extremity: With Setup/SBA Will do Tub/Shower Transfer: With Setup/SBA Will Bathe Self: With Setup/SBA Will do Toilet Transfers: With Setup/SBA Will do Toilieting: With Setup/SBA CPT/G Codes Time In: 1315 Time Out: 1332 Total Minutes: 16 Codes/Minutes: 62353 Therp Activity Shamika Abrams Nov 06, 2016 13:45
--- NOTE | 2016-11-06 14:29 | NUR ---
Pt assisted out of bathroom and walked to the window and back 3 times x2 this shift with walker. Pt tolerates well.
--- NOTE | 2016-11-06 15:05 | NUR ---
Pt sitting up in chair, reading a book. Denies any pain or any needs at this time.
--- NOTE | 2016-11-06 15:44 | PT Daily Note Inpatient (E) ---
PT Daily Treatment Service Date/Time 11/06/16, 15:42 Medical Diagnosis: (1) Upper respiratory infection ICD Code: J06.9 Physical Therapy: (1) Community acquired pneumonia ICD Code: J18.9 (2) Sepsis ICD Code: A41.9 (3) SIRS (systemic inflammatory response syndrome) ICD Code: R65.10 (4) Weakness ICD Code: R53.1 Precaution/Isolation: Standard Precautions Resuscitation Status: Full Code Fall Level: High Risk 51 or greater Subjective Oxygen Delivery: Nasal cannula O2 liters/minute: 1L Education/Plan Plan Patient will be seen: Daily Wednesday-Wednesday Discharge Recommendations: TCU/Skilled NH Coding No Treatment Provide Reason: Refuses therapy Patient was seen for physical therapy this morning, PT checked with patient this afternoon to see if she wanted to do more activities, she states "why do I have to have 3 of these, " PT educated the patient that she does not have to participated but we like to check with patient's to see if they would like to participate. GORDON MEHTA PT Nov 06, 2016 15:44
[2016-11-06 15:50] VITALS: BP 159/72
[2016-11-06] MEDS ORDERED: SODIUM CHLORIDE FLUSH 10 ML ONE (16:45)
[2016-11-06] MEDS: cefTRIAXone SODIUM 1,000 MG in SODIUM CHLORIDE 50 ML IV SCH (16:50)
[2016-11-06] MEDS ORDERED: NS FLUSH 10 ML PRN IV (17:00)
[2016-11-06] MEDS ORDERED: NS FLUSH 3 ML PRN IV (17:00)
--- NOTE | 2016-11-06 17:13 | Progress Note-A/P (E) ---
Progress Note Subjective: Patient is up to chair upon my visit. No family at bedside. She reports she thinks she is feeling better, however her cough is bothersome. She states it kept her up at night and she did try the phen/cod but did not feel it was very helpful. She is experiencing some constipation, however she feels this is due to not receiving her 2 dose of metamucil daily, she is only getting one dose, she would like to increase this. Discussed care and plan. Patient's children are coming to stay with her upon her discharge, therefore she is not interested in skilled care. Objective: Current Medications Metoprolol Succinate 25 mg DAILY PO Quetiapine 25 mg HS PO Multivitamins/ Minerals Therapeutic 1 ea DAILY@0800 PO Psyllium Hydrophilic Mucilloid 2 each DAILY PO Albuterol/ Ipratropium 3 ml RTQID INH Albuterol Sulfate 0.083% Neb Solution 2.5 mg Q4H PRN INH Guaifenesin 1,200 mg BID PO Ceftriaxone Q24H IV Azithromycin Q24H IV Acetaminophen 650 mg Q6H PRN PO Calcium Carbonate 300 mg Q8H PRN PO Al Hydrox/Mg Hydrox/Simethicone 30 ml Q6H PRN PO Ondansetron 4 mg Q6HR PRN PO Promethazine Q6H PRN IV Magnesium Hydroxide 30 ml DAILY PRN PO Polyethylene Glycol 17 gm DAILY PRN PO Docusate 100 mg BID PRN PO Enoxaparin 30 mg DAILY SC Promethazine 2.5 ml HS PRN PO Vital Signs Date Time Temp Pulse Resp B/P Pulse Ox O2 Delivery O2 Flow Rate FiO2 11/06/16 15:50 98.0 88 20 159/72 94 Nasal cannula 1L.00 I & O Past 24 hrs 11/06/16 06:59 Intake Total 1524 ml Output Total 1250 ml Balance 274 ml Intake Oral 1524 ml Output Urine Total 1250 ml Physical Exam General--Awake and alert. No distress. HEENT--Normocephalic. MMM in oral cavity.NC in place. Lungs--Wheezes through out. Coarse bases bilaterally. Nonlabored respirations. Heart--RRR. No murmurs. Abdomen--Normal bowel sounds. Soft. Nondistended. Nontender. Extremities--Trace edema in lower extremities. Past 24 hour Lab Results 11/06/16 05:40 Laboratory Results Past 24 Hrs 11/06/16 05:40: Albumin 3.0, Anion Gap 9.6, Basophils # (Auto) 0.0, Basophils (%) (Auto) 0, Blood Urea Nitrogen 15, C-Reactive Protein 14.50, Calcium Level 8.5, Carbon Dioxide Level 31, Chloride Level 104, Creatinine 0.54, Eosinophils # (Auto) 0.2 , Eosinophils (%) (Auto) 4, Estimat Glomerular Filtration Rate 128.9, Estimated GFR (Non- 106.5, Glucose Level 114, Hematocrit 31.00, Hemoglobin 10.1, Lymphocytes # (Auto) 0.4, Lymphocytes (%) (Auto) 9, Magnesium Level 1.9, Mean Corpuscular Hemoglobin 30.5, Mean Corpuscular Hemoglobin Concent 32.6, Mean Corpuscular Volume 94, Mean Platelet Volume 10.2, Monocytes # (Auto) 0.1, Monocytes (%) (Auto) 3, Neutrophils # (Auto) 3.4, Neutrophils (%) (Auto) 84, Phosphorus Level 3.6, Platelet Count 94, Potassium Level 4.0, Red Blood Count 3.31, Red Cell Distribution Width 14.1, Sodium Level 140, White Blood Count 4.07 Microbiology 11/03/16 Blood Culture - Preliminary, Resulted No Growth in 48 hours 11/03/16 Gram Stain - Final, Resulted 11/03/16 Sputum Culture - Preliminary, Resulted McP Sputum/Lower Respiratory Culture PRELIM 11/06/16 08:56 S Haemophilus species Large amount Beta-lactamase Negative Imaging Results 11/03/16 CXR IMPRESSION: Mild cardiomegaly with tortuous aorta. Chronic-appearing increased interstitial markings. There is some infiltrate or scarring in the right base which appears chronic or recurrent compared with 12/03/2011. Suggest followup as clinically warranted. Assessment/Plan Sepsis Secondary to CAP. VS are normalizing, WBC's normal. Treatment below. Acute Hypoxic Respiratory Failure Secondary to CAP. Weaned oxygen per protocol on 11.05.16. Acapella. Treating pneumonia. Community Acquired Pneumonia Blood cultures pending. Sputum culture noted above shows a haemophilus species, treated with azithromycin, pending final culture result. Resp PCR panel negative. Continue guaifenesin, ceftriaxone (day 4/5), and azithromycin.Phenergan/codeine at bedtime per patient's request. Bronchospasm Duoneb scheduled and albuterol PRN. Consider prescribing at discharge. PFT's as an outpatient. HTN Metoprolol per home dose. Constipation Bowel regimen (metamucil) per home dose. Insomnia Quetiapine per home dose. FEN General diet. IVF provided on admission. I/O's and daily weights. Peripheral IV. Electrolytes are normal. Prophylaxis Enoxaparin. Code Status DNR. Dispo Inpatient for above. Weaned from oxygen. Haemophilus has been treated with azithromycin. Patient is not interested in skilled care. Will need to touch base with patient's daughters to discuss d/c plans. RICKIE MATHIS MD Nov 06, 2016 17:13
--- NOTE | 2016-11-06 19:01 | NUR ---
1730-IV Rocephin infused well. Pt denies any needs. Daughter at bedside.
--- NOTE | 2016-11-06 19:01 | NUR ---
Resting at this time. Denies any needs or pain.
[2016-11-06 20:08] VITALS: BP 130/68
[2016-11-06] MEDS: QUEtiapine 25 MG (SEROquel) TAB IMMEDIATE RELEASE PO SCH (20:17)
[2016-11-07 00:10] VITALS: BP_SYST 122; BP_SYST 142; BP_DIAS 68
[2016-11-07 04:00] VITALS: BP 157/75
--- NOTE | 2016-11-07 04:35 | NUR ---
Pt is resting in bed asleep, has not complained of pain or discomfort during this shift. SL is patent, no redness, swelling, or s/s of infection noted at this time. Call light is in reach, will continue to monitor.
[2016-11-07] MEDS: ALBUTEROL/IPRATROPIUM 3MG-0.5MG/3ML (DUONEB) NEB VIAL INH SCH ×4 (07:24→19:14)
--- NOTE | 2016-11-07 07:27 | NUR ---
Pt is awake and alert, sitting in recliner, tolerated tx well, BS are clear, pt is on room air, SPO2 90%.
[2016-11-07] MEDS: MULTIVITAMIN W/MINERALS (THERAGRAN M) TABLET PO SCH (07:56)
[2016-11-07] MEDS: guaiFENesin ER 600 MG (MUCINEX) TAB PO SCH ×2 (08:00→21:34)
[2016-11-07 08:03] VITALS: BP 155/87
[2016-11-07] MEDS: ENOXAPARIN 30 MG/0.3 ML (LOVENOX) SYR SC SCH ×2 (09:00→09:11)
[2016-11-07] MEDS: NS FLUSH 3 ML DAILY IV SCH ×2 (09:12→17:34)
[2016-11-07] MEDS: PSYLLIUM SF (METAMUCIL) PACKET PO SCH (09:12)
--- NOTE | 2016-11-07 09:17 | NUR ---
Refused lovenox. States doesn't need it even after reason forit was explained.
--- NOTE | 2016-11-07 09:18 | NUR ---
Rsfuswd saline flush for iv at this time. Will do with scheduled med.
[2016-11-07 11:23] VITALS: BP 140/57
--- NOTE | 2016-11-07 12:41 | PT Daily Note Inpatient (E) ---
PT Daily Treatment Service Date/Time 11/07/16, 10:01 Medical Diagnosis: (1) Upper respiratory infection ICD Code: J06.9 Physical Therapy: (1) Community acquired pneumonia ICD Code: J18.9 (2) Sepsis ICD Code: A41.9 (3) SIRS (systemic inflammatory response syndrome) ICD Code: R65.10 (4) Weakness ICD Code: R53.1 Precaution/Isolation: Standard Precautions Resuscitation Status: Full Code Fall Level: High Risk 51 or greater Subjective Pt pleasant and cooperative today. Willing to ambulate in the [place] as long as she had a robe. Pt did state that the walker that she had is not safe, it folds up on her. Another FWW was provided to her and she stated that she felt much better with the new walker. Pain Level: 0 Oxygen Delivery: Room air O2 liters/minute: 0L Treatments Sit, Stand, Supine: Sitting, Standing Extremity: Both Lower Extremity Assistance: AROM Repetition: 1 x 20 Exercise: AP, Hip Abduction, Hip Adduction, LAQ, Hip Flexion, Hip Extension Transfers Rolling: Not Assessed/NA Sit-Supine: Not Assessed/NA Sitting Edge of Bed: Not Assessed/NA Supine-Sit: Not Assessed/NA Sit-Stand from bed: Supervision or setup Stand-Sit: Supervision or setup Pivot Transfers: Not Assessed/NA Gait Ambulation: Contact Guard Assist Distance Walked: 180 feet Weight Bearing Status: Full Assistive Device: FWW Gait Assist: Min Assist/Contact Guard Gait Description: Safe w/ Assistive Device, Decreased Reshma, Slow Gait Training: Limitations: SOB, Fatigue Stairs not attempted Education/Plan Education Education Needs: Breathing Technique Assessment Pt with no LOB with ambulation and minimal SOA with exercise and activity. Safety Awareness: Intact Response to Treatment: Improving Plan Continue with current POC Patient will be seen: Daily Wednesday-Wednesday Discharge Recommendations: TCU/Skilled NH Coding Time In: 10:01 Time Out: 10:25 Total Minutes: 24 Codes/Units: 39609 Exercise Therp 15 m Farheen Wu PT Nov 07, 2016 12:41
[2016-11-07] MEDS ORDERED: DEXTROMETHORPHAN 15 MG/10 ML UDC PO PRN (14:05)
--- NOTE | 2016-11-07 14:07 | Progress Note (E) ---
Progress Note SUBJECTIVE Overnight, no major issues. Now on room air. Afebrile. CRP improving. CBC improved, chemistry stable. Completed azithromycin and completing ceftriaxone. Discussed findings, plan of care. Still coughing a lot and it interrupts her sleep. She is agreeable to trying dextromethorphan. She is adamant about going home instead of skilled care. Would use [facility] and she has supportive family who can stay with her. Considering discharge tomorrow if continuing to improve. OBJECTIVE Vital Signs Date Time Temp Pulse Resp B/P Pulse Ox O2 Delivery O2 Flow Rate FiO2 11/07/16 11:23 97.7 84 20 140/57 93 Room air 11/06/16 15:50 1L.00 I & O 11/06/16 11/07/16 Cumulative From/Thru 19:00 07:00 11/03/16 12:24 - 11/07/16 06:06 Intake Total 850 ml 350 ml 6310 ml Output Total 850 ml 1365 ml 7165 ml Balance 0 ml -1015 ml -855 ml GEN: Awake, alert, interactive. NAD at present. HEENT: EOMI, clear sclerae, mildly dry oral mucosa. CV: Regular without significant murmur. LUNGS: Diminished breath sounds. Some faint and intermittent rhonchi in bases. Wheezes resolved. ABD: Soft, NT/ND with normal bowel sounds. EXTR: Trace ankle edema. Normal peripheral pulses. Warm, dry, well-perfused. INTEG: No rash. Age related changes. Dry skin. NEURO: No focal motor neuro deficit. Lab-Past 14 Days, 35 Results 11/03/16 12:20: Absolute Band Neutrophils 1.7, Alanine Aminotransferase (ALT/SGPT) 56, Albumin 4.1#, Albumin/Globulin Ratio 1.576, Alkaline Phosphatase 107, Anion Gap 14.6, Aspartate Amino Transf (AST/SGOT) 65H, BUN/Creatinine Ratio 36H, Band Neutrophils % 56H, Basophils # (Auto) , Basophils # (Manual) 0.0, Basophils % ( Manual) 0, Basophils (%) (Auto) , Blood Morphology Comment Normal, Blood Urea Nitrogen 18, C-Reactive Protein 22.80H, Calcium Level 9.1, Calcium/Ionized Calcium Ratio 4.1, Calculated Osmolality 271L, Carbon Dioxide Level 28, Chloride Level 98, Creatinine 0.50L, Differential Total Cells Counted 100, Eosinophils # 0.1, Eosinophils # (Auto) , Eosinophils % (Manual) 2, Eosinophils (%) (Auto) , Estimat Glomerular Filtration Rate 140.9, Estimated GFR (Non- 116.4, Glucose Level 197#H, Hematocrit 35.20, Hemoglobin 12.1, Lymphocytes # 0.2, Lymphocytes # (Auto) , Lymphocytes % (Manual) 5L, Lymphocytes (%) (Auto) , Mean Corpuscular Hemoglobin 31.8, Mean Corpuscular Hemoglobin Concent 34.4, Mean Corpuscular Volume 93, Mean Platelet Volume 10.3H , Metamyelocytes % 0, Monocytes # 0.1, Monocytes # (Auto) , Monocytes % (Manual ) 4, Monocytes (%) (Auto) , WK-Oaa-T-Type Natriuretic Peptide 2140H, Neutrophils # 1.2, Neutrophils # (Auto) , Neutrophils (%) (Auto) , Platelet Count 108L, Potassium Level 4.3, Red Blood Count 3.80L, Red Cell Distribution Width 13.8, Segmented Neutrophils % 33L, Sodium Level 136, Total Bilirubin 1.1H , Total Protein 6.7, White Blood Count 3.77L 11/03/16 13:32: Adenovirus (PCR) Negative, Bordetella parapertussis DNA (PCR) Negative, Chlamydophila pneumoniae (PCR) Negative, Coronavirus Type 229E (PCR) Negative, Coronavirus Type HKU1 (PCR) Negative, Coronavirus Type NL63 (PCR) Negative, Coronavirus Type OC43 (PCR) Negative, Enterovirus/Rhinovirus (PCR) Negative, Human Metapneumovirus (PCR) Negative, Influenza Type A (H1) (PCR) Negative, Influenza Virus Type B (PCR) Negative, Mycoplasma pneumoniae (PCR) Negative, Parainfluenza Type 1 (PCR) Negative, Parainfluenza Type 2 (PCR) Negative, Parainfluenza Type 3 (PCR) Negative, Parainfluenza Type 4 (PCR) Negative, Respiratory Syncytial Virus (PCR) Negative 11/03/16 14:10: Urine Bacteria None seen, Urine Bilirubin Negative, Urine Clarity Clear, Urine Collection Type Clean catch, Urine Color Dark yellow, Urine Glucose (UA) Negative, Urine Ketones Negative, Urine Leukocyte Esterase Negative, Urine Mucus Rare, Urine Nitrite Negative, Urine Protein TraceH, Urine RBC 10-20H, Urine RBC (Auto) 1+H, Urine Specific [place] 1.015, Urine Squamous Epithelial Cells 2-5, Urine Urobilinogen 0.2, Urine WBC None seen, Urine pH 6.0, Volume Urine Centrifuged 12 ml 11/04/16 06:00: Absolute Band Neutrophils 0.7, Albumin 3.5, Anion Gap 12.6, Band Neutrophils % 22H, Basophils # (Auto) , Basophils # (Manual) 0.0, Basophils % (Manual) 0, Basophils (%) (Auto) , Blood Morphology Comment Normal, Blood Urea Nitrogen 15, Calcium Level 8.9, Carbon Dioxide Level 30H, Chloride Level 103, Creatinine 0.50L, Differential Total Cells Counted 100, Eosinophils # 0.1, Eosinophils # ( Auto) , Eosinophils % (Manual) 2, Eosinophils (%) (Auto) , Estimat Glomerular Filtration Rate 140.9, Estimated GFR (Non- 116.4, Glucose Level 113#H, Hematocrit 32.70L, Hemoglobin 11.1L, Lymphocytes # 0.3, Lymphocytes # ( Auto) , Lymphocytes % (Manual) 8L, Lymphocytes (%) (Auto) , Mean Corpuscular Hemoglobin 31.9, Mean Corpuscular Hemoglobin Concent 33.9, Mean Corpuscular Volume 94, Mean Platelet Volume 9.9H, Monocytes # 0.1, Monocytes # (Auto) , Monocytes % (Manual) 2L, Monocytes (%) (Auto) , Neutrophils # 2.6, Neutrophils # (Auto) , Neutrophils (%) (Auto) , Platelet Count 96L, Potassium Level 4.3, Red Blood Count 3.48L, Red Cell Distribution Width 13.9, Segmented Neutrophils % 66, Sodium Level 141, White Blood Count 3.92L, Magnesium Level 2.0, Phosphorus Level 2.9 11/05/16 05:45: Absolute Band Neutrophils 0.2, Albumin 2.9L, Anion Gap 11.0, Band Neutrophils % 5, Basophils # (Auto) , Basophils # (Manual) 0.0, Basophils % (Manual) 0, Basophils (%) (Auto) , Blood Morphology Comment Normal, Blood Urea Nitrogen 16, C-Reactive Protein 18.30H, Calcium Level 8.6L, Carbon Dioxide Level 30H, Chloride Level 106, Creatinine 0.60, Differential Total Cells Counted 100, Eosinophils # 0.2, Eosinophils # (Auto) , Eosinophils % (Manual) 4, Eosinophils (%) (Auto) , Estimat Glomerular Filtration Rate 114.2, Estimated GFR (Non- 94.4, Glucose Level 113H, Hematocrit 30.90L, Hemoglobin 10.3L, Lymphocytes # 0.3, Lymphocytes # (Auto) , Lymphocytes % (Manual) 8L, Lymphocytes (%) (Auto) , Magnesium Level 2.0, Mean Corpuscular Hemoglobin 31.3, Mean Corpuscular Hemoglobin Concent 33.3, Mean Corpuscular Volume 94, Mean Platelet Volume 10.0H, Monocytes # 0.1, Monocytes # (Auto) , Monocytes % (Manual ) 2L, Monocytes (%) (Auto) , Neutrophils # 3.6, Neutrophils # (Auto) , Neutrophils (%) (Auto) , Phosphorus Level 3.0, Platelet Count 90L, Potassium Level 4.1, Red Blood Count 3.29L, Red Cell Distribution Width 13.9, Segmented Neutrophils % 81H, Sodium Level 142, White Blood Count 4.39 11/06/16 05:40: Albumin 3.0L, Anion Gap 9.6, Basophils # (Auto) 0.0, Basophils (%) (Auto) 0, Blood Urea Nitrogen 15, C-Reactive Protein 14.50H, Calcium Level 8.5L, Carbon Dioxide Level 31H, Chloride Level 104, Creatinine 0.54L, Eosinophils # (Auto) 0.2, Eosinophils (%) (Auto) 4, Estimat Glomerular Filtration Rate 128.9, Estimated GFR (Non- 106.5, Glucose Level 114H, Hematocrit 31.00L , Hemoglobin 10.1L, Lymphocytes # (Auto) 0.4, Lymphocytes (%) (Auto) 9L, Magnesium Level 1.9, Mean Corpuscular Hemoglobin 30.5, Mean Corpuscular Hemoglobin Concent 32.6, Mean Corpuscular Volume 94, Mean Platelet Volume 10.2H , Monocytes # (Auto) 0.1, Monocytes (%) (Auto) 3, Neutrophils # (Auto) 3.4, Neutrophils (%) (Auto) 84H, Phosphorus Level 3.6, Platelet Count 94L, Potassium Level 4.0, Red Blood Count 3.31L, Red Cell Distribution Width 14.1, Sodium Level 140, White Blood Count 4.07 MICRO 11/03 Resp PCR Panel Negative 11/03 Blood culture PENDING SPEC #: [id number] ANNE: 11/03/16-2 STATUS: COMP REQ #: [id number] RECD: 11/03/16 [facility] DR: THUY TOMAS MD Order Location: ED SOURCE: SPUTUM DESCRIPTION: EXPECTORAT Procedure Result Verified GRAM STAIN Final Verified 11/03/16-155 Source: SPUTUM / EXPECTORATED Order Location: EMERGENCY LARGE WBC >50/lpf FEW EPITHELIAL CELLS 0-5/lpf LARGE GRAM NEG COCCOBACILLI >100/oil MOD GRAM NEG DIPLOCOCCI 50-100/oil FEW GRAM POSITIVE COCCI 5-25/oil Culture Sputum Final Verified 11/07/16-1112 AM Source: SPUTUM / EXPECTORATED Order Location: EMERGENCY Source: Sputum Collected: 11/03/16 13:32 Site: EXPECTORAT Received : 11/03/16 22:28 Order#: [id number] [facility] Sputum/Lower Respiratory Culture FINAL 11/07/16 11:11 S Haemophilus influenzae Large amount Beta-lactamase Negative Normal respiratory abelino present S: Performed at:[facility]#[id number] JONES FOR RESULTS: * - NEW RESULT - RESULT WAS MODIFIED AFTER FINAL STATUS SET IMAGING 11/03/16 CHEST 1 VIEW, AP/PA ONLY* INDICATION: Shortness of breath. Frontal chest obtained at 1:38 p.m. and compared with 12/03/2011 Heart is mildly enlarged. Aorta is tortuous. There are mild chronic-appearing increased interstitial markings. There is no pneumothorax or pleural fluid. There is some infiltrate or scarring in the right base which appears chronic or recurrent compared with 12/03/2011. Severe underlying degenerative changes of both shoulders. IMPRESSION: Mild cardiomegaly with tortuous aorta. Chronic-appearing increased interstitial markings. There is some infiltrate or scarring in the right base which appears chronic or recurrent compared with 12/03/2011. Suggest followup as clinically warranted. 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 She does not have a prior diagnosis of COPD or asthma but was felt to have bronchospasm on admit. She has a few chronic problems. PLAN * SIRS/Sepsis: Resolved. * Acute Respiratory Distress: Oxygen protocol. Acapella. * Community Acquired Pneumonia due to Haemophilus influenzae: On the basis of sputum culture. Blood culture negative. Resp PCR panel negative. Acapella. Guaifenesin, ceftriaxone, azithromycin. * Bronchospasm: Duoneb scheduled, albuterol PRN. Consider prescribing at discharge. May need PFT. * Cough: Dextromethorphan. * Dehydration: Resolved. Mild. NS bolus on admit. I&O, daily weight. * F/E/N: General diet. IVF as above. Peripheral IV. * Prophylaxis: Enoxaparin * Code Status: DNR * Dispo: Inpatient. Declines skilled care. Probably discharge home with home health 11/08. CHRONIC ISSUES * HTN: Metoprolol * Constipation: Bowel regimen * Insomnia: Quetiapine FRANCHESCA JOHN MD Nov 07, 2016 13:47
--- NOTE | 2016-11-07 15:25 | NUR ---
Pt is awake and alert, sitting in recliner, on room air-SPO2 94%. Acapella instructed, pt did 6 breaths with me present, post tx.
[2016-11-07 15:41] VITALS: BP 156/79
[2016-11-07] MEDS: cefTRIAXone SODIUM 1,000 MG in SODIUM CHLORIDE 50 ML IV SCH (17:07)
--- NOTE | 2016-11-07 17:40 | NUR ---
IV REMOVED DUE TO INFILTRATION. DR. JOHN STATES MAY LEAVE IV OUT.
--- NOTE | 2016-11-07 18:40 | NUR ---
OFFERED WARM COMPRESS FOR INFILTRATION EDEMA ON LEFT FOREARM. PATIENT REFUSED STATING "IT'S OKAY".
[2016-11-07 20:00] VITALS: BP 153/74
[2016-11-07] MEDS: QUEtiapine 25 MG (SEROquel) TAB IMMEDIATE RELEASE PO SCH (21:34)
[2016-11-08] VITALS: BP 149/76
[2016-11-08 04:00] VITALS: BP 139/80
[2016-11-08 08:19] VITALS: BP 152/82
[2016-11-08] MEDS: MULTIVITAMIN W/MINERALS (THERAGRAN M) TABLET PO SCH (08:38)
[2016-11-08] MEDS: guaiFENesin ER 600 MG (MUCINEX) TAB PO SCH (08:38)
[2016-11-08] MEDS: PSYLLIUM SF (METAMUCIL) PACKET PO SCH (08:38)
[2016-11-08] MEDS: ENOXAPARIN 30 MG/0.3 ML (LOVENOX) SYR SC SCH (08:39)
[2016-11-08] MEDS: ALBUTEROL/IPRATROPIUM 3MG-0.5MG/3ML (DUONEB) NEB VIAL INH SCH ×2 (09:23→13:35)
--- NOTE | 2016-11-08 09:52 | NUR ---
Pt sitting up in chair- denies needs. Remains on RA. Camryn RT has been in room for breathing treatments. No IV noted. Pt states she is going home today.
--- NOTE | 2016-11-08 10:59 | NUR ---
Pt finished in shower- Back in chair Robitussin syrup prn given now.
[2016-11-08 11:25] VITALS: BP 128/81
[2016-11-08] MEDS ORDERED: CEFDINIR 300 MG (OMNICEF) CAPSULE PO SCH (11:30)
[2016-11-08] MEDS ORDERED: GFN600TCR PO (11:37)
[2016-11-08] MEDS ORDERED: CEFD300C PO (11:37)
[2016-11-08] MEDS ORDERED: DEXT7.5S PO (11:37)
--- NOTE | 2016-11-08 11:40 | Discharge Instructions (E) ---
Discharge Instructions Instructions * You were evaluated and treated for pneumonia. You received IV antibiotic in hospital and will complete therapy with oral antibiotic after discharge. Review the provided handout for details. * For cough, it is OK to take aten-[id number]-wvchpyp dextromethorphan (Robitussin.) Continue to take guaifenesin as recommended for a 3-5 more days to help thin mucus secretions. * Continue to use your acapella (deep breathing earth burner) which will help you recover from your pneumonia. Activity Instructions As tolerated. Doctor's Appointment Follow-up with your primary care doctor in 3-5 days. Discharge Diet: Regular FRANCHESCA JOHN MD Nov 08, 2016 11:40
--- NOTE | 2016-11-08 11:49 | Discharge Summary (E) ---
Discharge Summary (E) Admit Date/Time Nov 03, 2016 at 17:47 Discharge Date/Time Nov 08, 2016 Admitting Provider Shubham Mansfield MD Primary Care Provider Allan Cornell MD Attending Provider Shubham Mansfield MD Consulting Provider History and Present Illness See History and Physical for complete details. 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 She does not have a prior diagnosis of COPD or asthma but was felt to have bronchospasm on admit. She has a few chronic problems. She improved significantly with therapies as outlined. She received 5 days of IV antibiotic therapy but this was extended at discharge for 2 more days with oral cefdinir. She was discharged home with home health. Hospital Course and Treatment * SIRS/Sepsis: Resolved. * Acute Respiratory Distress: Resolved. Oxygen protocol. Acapella. At discharge , was on room air. Encouraged continued use of acapella at home. * Community Acquired Pneumonia due to Haemophilus influenzae: On the basis of sputum culture. Blood culture negative. Resp PCR panel negative. Acapella. Guaifenesin, ceftriaxone, azithromycin. At discharge, 2 more days of therapy with cefdinir. Follow-up CXR in 2 weeks. * Bronchospasm: Duoneb scheduled, albuterol PRN. Considered prescribing at discharge but she improved significantly. Consider PFT in 4-6 weeks after recovery from this pneumonia. * Cough: Dextromethorphan, guaifenesin. Continued at discharge. * Dehydration: Resolved. Mild. NS bolus on admit. I&O, daily weight. * F/E/N: General diet. IVF as above. Peripheral IV. * Prophylaxis: Enoxaparin * Code Status: DNR * Dispo: Inpatient. Declines skilled care. Discharged home with home health. CHRONIC ISSUES * HTN: Metoprolol * Constipation: Bowel regimen * Insomnia: Quetiapine Discharge Physicial Exam General Vital Signs Date Time Temp Pulse Resp B/P Pulse Ox O2 Delivery O2 Flow Rate FiO2 11/08/16 08:19 98.3 92 20 152/82 94 Room air 11/08/16 00:00 0.00 Discharge weight: 60.6 kg GEN: Awake, alert, interactive. NAD at present. HEENT: EOMI, clear sclerae, mildly dry oral mucosa. CV: Regular without significant murmur. LUNGS: Diminished breath sounds. No wheezes or rhonchi. ABD: Soft, NT/ND with normal bowel sounds. EXTR: 1+ ankle edema. Normal peripheral pulses. Warm, dry, well-perfused. INTEG: No rash. Age related changes. Dry skin. Pale complexion. NEURO: No focal motor neuro deficit. Laboratory/Radiology Data WBC low on admit at 3.77 but improved to 4.07. (Noted she has CLL.) CRP on admit was 22.80, improving 11/06 to 14.50. Chemistry was stable. Noted pro-BNP was 2140. Respiratory PCR panel was negative. Sputum grew Haemophilus influenzae. Laboratory Results-14 Days 11/03/16 12:20: Absolute Band Neutrophils 1.7, Alanine Aminotransferase (ALT/SGPT) 56, Albumin 4.1#, Albumin/Globulin Ratio 1.576, Alkaline Phosphatase 107, Anion Gap 14.6, Aspartate Amino Transf (AST/SGOT) 65H, BUN/Creatinine Ratio 36H, Band Neutrophils % 56H, Basophils # (Auto) , Basophils # (Manual) 0.0, Basophils % ( Manual) 0, Basophils (%) (Auto) , Blood Morphology Comment Normal, Blood Urea Nitrogen 18, C-Reactive Protein 22.80H, Calcium Level 9.1, Calcium/Ionized Calcium Ratio 4.1, Calculated Osmolality 271L, Carbon Dioxide Level 28, Chloride Level 98, Creatinine 0.50L, Differential Total Cells Counted 100, Eosinophils # 0.1, Eosinophils # (Auto) , Eosinophils % (Manual) 2, Eosinophils (%) (Auto) , Estimat Glomerular Filtration Rate 140.9, Estimated GFR (Non- 116.4, Glucose Level 197#H, Hematocrit 35.20, Hemoglobin 12.1, Lymphocytes # 0.2, Lymphocytes # (Auto) , Lymphocytes % (Manual) 5L, Lymphocytes (%) (Auto) , Mean Corpuscular Hemoglobin 31.8, Mean Corpuscular Hemoglobin Concent 34.4, Mean Corpuscular Volume 93, Mean Platelet Volume 10.3H , Metamyelocytes % 0, Monocytes # 0.1, Monocytes # (Auto) , Monocytes % (Manual ) 4, Monocytes (%) (Auto) , CF-Nfy-D-Type Natriuretic Peptide 2140H, Neutrophils # 1.2, Neutrophils # (Auto) , Neutrophils (%) (Auto) , Platelet Count 108L, Potassium Level 4.3, Red Blood Count 3.80L, Red Cell Distribution Width 13.8, Segmented Neutrophils % 33L, Sodium Level 136, Total Bilirubin 1.1H , Total Protein 6.7, White Blood Count 3.77L 11/03/16 13:32: Adenovirus (PCR) Negative, Bordetella parapertussis DNA (PCR) Negative, Chlamydophila pneumoniae (PCR) Negative, Coronavirus Type 229E (PCR) Negative, Coronavirus Type HKU1 (PCR) Negative, Coronavirus Type NL63 (PCR) Negative, Coronavirus Type OC43 (PCR) Negative, Enterovirus/Rhinovirus (PCR) Negative, Human Metapneumovirus (PCR) Negative, Influenza Type A (H1) (PCR) Negative, Influenza Virus Type B (PCR) Negative, Mycoplasma pneumoniae (PCR) Negative, Parainfluenza Type 1 (PCR) Negative, Parainfluenza Type 2 (PCR) Negative, Parainfluenza Type 3 (PCR) Negative, Parainfluenza Type 4 (PCR) Negative, Respiratory Syncytial Virus (PCR) Negative 11/03/16 14:10: Urine Bacteria None seen, Urine Bilirubin Negative, Urine Clarity Clear, Urine Collection Type Clean catch, Urine Color Dark yellow, Urine Glucose (UA) Negative, Urine Ketones Negative, Urine Leukocyte Esterase Negative, Urine Mucus Rare, Urine Nitrite Negative, Urine Protein TraceH, Urine RBC 10-20H, Urine RBC (Auto) 1+H, Urine Specific Cardwell 1.015, Urine Squamous Epithelial Cells 2-5, Urine Urobilinogen 0.2, Urine WBC None seen, Urine pH 6.0, Volume Urine Centrifuged 12 ml 11/04/16 06:00: Absolute Band Neutrophils 0.7, Albumin 3.5, Anion Gap 12.6, Band Neutrophils % 22H, Basophils # (Auto) , Basophils # (Manual) 0.0, Basophils % (Manual) 0, Basophils (%) (Auto) , Blood Morphology Comment Normal, Blood Urea Nitrogen 15, Calcium Level 8.9, Carbon Dioxide Level 30H, Chloride Level 103, Creatinine 0.50L, Differential Total Cells Counted 100, Eosinophils # 0.1, Eosinophils # ( Auto) , Eosinophils % (Manual) 2, Eosinophils (%) (Auto) , Estimat Glomerular Filtration Rate 140.9, Estimated GFR (Non- 116.4, Glucose Level 113#H, Hematocrit 32.70L, Hemoglobin 11.1L, Lymphocytes # 0.3, Lymphocytes # ( Auto) , Lymphocytes % (Manual) 8L, Lymphocytes (%) (Auto) , Mean Corpuscular Hemoglobin 31.9, Mean Corpuscular Hemoglobin Concent 33.9, Mean Corpuscular Volume 94, Mean Platelet Volume 9.9H, Monocytes # 0.1, Monocytes # (Auto) , Monocytes % (Manual) 2L, Monocytes (%) (Auto) , Neutrophils # 2.6, Neutrophils # (Auto) , Neutrophils (%) (Auto) , Platelet Count 96L, Potassium Level 4.3, Red Blood Count 3.48L, Red Cell Distribution Width 13.9, Segmented Neutrophils % 66, Sodium Level 141, White Blood Count 3.92L, Magnesium Level 2.0, Phosphorus Level 2.9 11/05/16 05:45: Absolute Band Neutrophils 0.2, Albumin 2.9L, Anion Gap 11.0, Band Neutrophils % 5, Basophils # (Auto) , Basophils # (Manual) 0.0, Basophils % (Manual) 0, Basophils (%) (Auto) , Blood Morphology Comment Normal, Blood Urea Nitrogen 16, C-Reactive Protein 18.30H, Calcium Level 8.6L, Carbon Dioxide Level 30H, Chloride Level 106, Creatinine 0.60, Differential Total Cells Counted 100, Eosinophils # 0.2, Eosinophils # (Auto) , Eosinophils % (Manual) 4, Eosinophils (%) (Auto) , Estimat Glomerular Filtration Rate 114.2, Estimated GFR (Non- 94.4, Glucose Level 113H, Hematocrit 30.90L, Hemoglobin 10.3L, Lymphocytes # 0.3, Lymphocytes # (Auto) , Lymphocytes % (Manual) 8L, Lymphocytes (%) (Auto) , Magnesium Level 2.0, Mean Corpuscular Hemoglobin 31.3, Mean Corpuscular Hemoglobin Concent 33.3, Mean Corpuscular Volume 94, Mean Platelet Volume 10.0H, Monocytes # 0.1, Monocytes # (Auto) , Monocytes % (Manual ) 2L, Monocytes (%) (Auto) , Neutrophils # 3.6, Neutrophils # (Auto) , Neutrophils (%) (Auto) , Phosphorus Level 3.0, Platelet Count 90L, Potassium Level 4.1, Red Blood Count 3.29L, Red Cell Distribution Width 13.9, Segmented Neutrophils % 81H, Sodium Level 142, White Blood Count 4.39 11/06/16 05:40: Albumin 3.0L, Anion Gap 9.6, Basophils # (Auto) 0.0, Basophils (%) (Auto) 0, Blood Urea Nitrogen 15, C-Reactive Protein 14.50H, Calcium Level 8.5L, Carbon Dioxide Level 31H, Chloride Level 104, Creatinine 0.54L, Eosinophils # (Auto) 0.2, Eosinophils (%) (Auto) 4, Estimat Glomerular Filtration Rate 128.9, Estimated GFR (Non- 106.5, Glucose Level 114H, Hematocrit 31.00L , Hemoglobin 10.1L, Lymphocytes # (Auto) 0.4, Lymphocytes (%) (Auto) 9L, Magnesium Level 1.9, Mean Corpuscular Hemoglobin 30.5, Mean Corpuscular Hemoglobin Concent 32.6, Mean Corpuscular Volume 94, Mean Platelet Volume 10.2H , Monocytes # (Auto) 0.1, Monocytes (%) (Auto) 3, Neutrophils # (Auto) 3.4, Neutrophils (%) (Auto) 84H, Phosphorus Level 3.6, Platelet Count 94L, Potassium Level 4.0, Red Blood Count 3.31L, Red Cell Distribution Width 14.1, Sodium Level 140, White Blood Count 4.07 MICRO 11/03 Resp PCR Panel Negative 11/03 Blood culture PENDING SPEC #: [id number] ANNE: 11/03/16 STATUS: COMP REQ #: [id number] RECD: 11/03/16-[address] [facility] [address]: THUY TOMAS MD Order Location: ED SOURCE: SPUTUM DESCRIPTION: EXPECTORAT Procedure Result Verified GRAM STAIN Final Verified 11/03/16-1551 Source: SPUTUM / EXPECTORATED Order Location: EMERGENCY LARGE WBC >50/lpf FEW EPITHELIAL CELLS 0-5/lpf LARGE GRAM NEG COCCOBACILLI >100/oil MOD GRAM NEG DIPLOCOCCI 50-100/oil FEW GRAM POSITIVE COCCI 5-25/oil Culture Sputum Final Verified 11/07/16-1112 AM Source: SPUTUM / EXPECTORATED Order Location: EMERGENCY Source: Sputum Collected: 11/03/16 13:32 Site: EXPECTORAT Received : 11/03/16 22:28 Order#: [id number] [facility] Sputum/Lower Respiratory Culture FINAL 11/07/16 11:11 S Haemophilus influenzae Large amount Beta-lactamase Negative Normal respiratory abelino present S: Performed at:[place], [place] CLIA#[id number] JONES FOR RESULTS: * - NEW RESULT - RESULT WAS MODIFIED AFTER FINAL STATUS SET IMAGING 11/03/16 CHEST 1 VIEW, AP/PA ONLY* INDICATION: Shortness of breath. Frontal chest obtained at 1:38 p.m. and compared with 12/03/2011 Heart is mildly enlarged. Aorta is tortuous. There are mild chronic-appearing increased interstitial markings. There is no pneumothorax or pleural fluid. There is some infiltrate or scarring in the right base which appears chronic or recurrent compared with 12/03/2011. Severe underlying degenerative changes of both shoulders. IMPRESSION: Mild cardiomegaly with tortuous aorta. Chronic-appearing increased interstitial markings. There is some infiltrate or scarring in the right base which appears chronic or recurrent compared with 12/03/2011. Suggest followup as clinically warranted. Discharge Disposition Discharged home with home health. Instructions * You were evaluated and treated for pneumonia. You received IV antibiotic in hospital and will complete therapy with oral antibiotic after discharge. Review the provided handout for details. * For cough, it is OK to take [id number] dextromethorphan (Robitussin.) Continue to take guaifenesin as recommended for a 3-5 more days to help thin mucus secretions. 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 Activity Instructions As tolerated. Appointments Follow-up with your primary care doctor in 3-5 days. Discharge Diet: Regular Discharge Medications New Medications: Cefdinir (Cefdinir) 300 Mg Capsule 300 MG PO BID Infection #4 Ref 0 CAP Dextromethorphan (Robitussin Pediatric 7.5mg/5ml) 7.5 Mg/5 Ml Syrup 15 MG PO Q4H PRN COUGH #1 Ref 0 BTL Guaifenesin (Mucinex) 600 Mg Tab 1200 MG PO BID Take for 5 more days, then stop of cough and mucus production have improved. #0 Ref 0 TAB Continued Medications: Metoprolol Succinate (Metoprolol Succinate) 25 Mg Tab.er.24h 25 MG PO DAILY TAB Mu-Vits-Min Th/Lycopene/Lutein (Centrum Silver Tablet) 1 Each Tablet 1 EACH PO DAILY TAB Psyllium Husk (Metamucil) 660 Gm Powder 660 GM PO DAILY Quetiapine Fumarate (Seroquel) 25 Mg Tablet 25 MG PO HS Follow up Follow up Referrals: Home Health Service - 11/09/16 with [facility] New Orders: CXR (CHEST PA/LAT (2 VIEW)* - Within 2 weeks Discharge Diagnosis See list above. Problems: Copies to: End of Report . SHUBHAM MANSFIELD MD Nov 08, 2016 11:49
--- NOTE | 2016-11-08 12:00 | NUR ---
siena Buschr called with update on discharge- she will be here between 2-3pm to pick her up- will let pt know.
--- NOTE | 2016-11-08 15:01 | NUR ---
Reviewed discharge medications with patient. Provided patient handout information for new medications. No additional questions or concerns. Patient verbalized understanding of medications.
--- NOTE | 2016-11-08 15:08 | NUR ---
Pt's daughter here to pick pt up. Pharmacy reviewed new medications with daughter and patient. DC instructions reviewed with daughter and patient, both demonstrate understanding. No IV site noted. Belongings gathered. Changed pt into street clothes. Pt dismissed at this time via w/c accompanied by daughter and MAHSA Koenig. Belongings and DC packet sent with patient.
--- NOTE | 2017-01-07 09:34 | Physical Therapy Evaluation(E) ---
Discharge Summary Service Date/Time 01/07/17, 09:29 Primary Diagnosis: (1) Upper respiratory infection ICD Code: J06.9 Treatment Diagnosis: (1) Community acquired pneumonia ICD Code: J18.9 (2) Sepsis ICD Code: A41.9 (3) SIRS (systemic inflammatory response syndrome) ICD Code: R65.10 (4) Weakness ICD Code: R53.1 Onset Date: 11/03/2016 Start of Service Date: Nov 04, 2016 Summary of Progress Summary Comment The patient required encouragement to participated in therapy sessions and was concerned about experiencing back spasms during therapy activities. Minimal ambulation was completed due to patient refusal. She did demonstrated improved transfer ability and strength. Distance Walked in Feet Patient refused to ambulate this date secondary to fatigue. Assistive Device: FWW Assist: Min Assist/Contact Guard Gait Description: Safe w/ Assistive Device, Decreased Reshma, Slow Gait Limitations: SOB, Fatigue 170 feet with FWW Transfer STG and Status Rolling: Contact Guard Assist Goal Status at Discharge: Goal Partially Met Sit-Supine: Minimal Assistance Goal Status at Discharge: Goal Partially Met Sitting Edge of Bed: Contact Guard Assist Goal Status at Discharge: Goal Met Supine-Sit: Contact Guard Assist Goal Status at Discharge: Goal Partially Met Sit-Stand from bed: Contact Guard Assist Goal Status at Discharge: Goal Met Stand-Sit: Contact Guard Assist Goal Status at Discharge: Goal Met Ambulation: Contact Guard Assist Goal Status at Discharge: Goal Met Distance Walked: 180 feet. Transfer LTG and Status Rolling: Modified [place] Goal Status at Discharge: Goal Not Met Sit-Supine: Modified [place] Goal Status at Discharge: Goal Not Met Sitting Edge of Bed: Complete [place] Goal Status at Discharge: Goal Not Met Supine-Sit: Modified [place] Goal Status at Discharge: Goal Not Met Sit-Stand from bed: Supervision or setup Goal Status at Discharge: Goal Partially Met Stand-Sit: Supervision or setup Goal Status at Discharge: Goal Partially Met Ambulation: Supervision or setup Goal Status at Discharge: Goal Not Met Plan of Care Goals and Status STG: Plan-Treatment Functional: Trans. Safe w/ AD Goal Status at Discharge: Goal Partially Met Discharge Recommendations: TCU/Skilled [facility] Service Recommendations: Continue Service (Patient was transferred to swing bed status to continue with rehabilitative services. ) GORDON MEHTA PT Jan 07, 2017 09:34
== END 2016-11-08 15:08 | disposition home health service (06) | DRG 871 ==
LOC: ED 11:59 → MED/SURG 17:47
PROVIDERS: ADMIT Internal Medicine; ATTEND Internal Medicine
DX: A41.9 Sepsis, unspecified organism (principal); J96.00 Acute respiratory failure, unspecified whether with hypoxia or hypercapnia; J14 Pneumonia due to Hemophilus influenzae; C91.10 Chronic lymphocytic leukemia of B-cell type not having achieved remission; Z66 Do not resuscitate; J98.01 Acute bronchospasm; E86.0 Dehydration; I10 Essential (primary) hypertension; K59.00 Constipation, unspecified; G47.00 Insomnia, unspecified
CPT/HCPCS: 36415; 71010; 80053; 80069; 81003; 81015; 83735; 83880; 85025; 86140; 87040; 87070; 87077; 87185; 87205; 87486; 87581; 87633; 87798; 94640; 94669; 94760; 96365; 96367; 99282; 99284

== ENCOUNTER 2016-11-09 07:04 | Inpatient (IN) | payer MEDICARE ==
[~2016-11-09] VITALS: Ht 165.1 cm; Wt 60.6 kg
[~2016-11-09 07:04] MED LIST changes: +CEFD300C PO; +DEXT7.5S PO; +GFN600TCR PO; +METO-270 PO; +MULT-1034 PO; +PSYL660P17 PO
[2016-11-09] MEDS ORDERED: MAGNESIUM HYDROXIDE 80MG/ML (MILK OF MAGNESIA) 30 ML UDC PO PRN (08:10)
[2016-11-09] MEDS ORDERED: MAG HYDROX/AL HYDROX/SIMETH 200-200-20/5 ML (MAG-AL PLUS) 30 ML UDC PO PRN (08:10)
[2016-11-09] MEDS ORDERED: ALBUTEROL 0.083% NEB SOLUTION 2.5 MG/3 ML VIAL INH PRN (08:10)
[2016-11-09] MEDS ORDERED: POLYETHYLENE GLYCOL 17 GM (MIRALAX) PACKET PO PRN (08:10)
[2016-11-09] MEDS ORDERED: DOCUSATE SODIUM 100 MG (COLACE) CAP PO PRN (08:10)
[2016-11-09] MEDS ORDERED: ONDANSETRON 4 MG (ZOFRAN) ORAL DISSOLVE TAB PO PRN (08:10)
[2016-11-09] MEDS ORDERED: CALCIUM CARBONATE CHEWABLE 300 MG (TUMS) TABLET PO PRN (08:10)
[2016-11-09 08:18] VITALS: BP 174/83
[2016-11-09 08:19] VITALS: BP 174/83
--- NOTE | 2016-11-09 08:38 | History and Physical (E) ---
History & Physical PCP: Allan Cornell MD CC: Respiratory Distress, physical deconditioning HPI Jina Campbell is a 89 year old female admitted to senior living 11/09 after she had just been discharged from this facility for pneumonia, treated from -11/08. She had been offered senior living after that hospitalization but declined and opted for discharge home 11/08 with home health. However, she developed shortness of breath overnight and was seen in ED at [facility] 11/09 around 04:30. PA there called asking for admit and she was accepted for senior living where she will benefit from continued medical management of her resolving pneumonia as well as from PT/OT for physical deconditioning. On arrival to unit, awake, alert, interactive. Still has a cough which she had at discharge. Able to speak in clear, full sentences and not at present in respiratory distress. She is able to relate history. States she awoke at 2-3 AM this morning feeling like she couldn't breathe. She felt she was "gasping for air." Called out to her daughter who was staying with her saying she couldn't breath. EMS was called. SpO2 was 80% and improved with oxygen. CXR showed pneumonia, which is as expected since she was already being treated as such. Denies fever, chills, and denies any new GI complaints. PMH * Community acquired pneumonia, 11/2016. * arthritis * constipation * pneumonia * hard of hearing * CLL (Sees Dr. 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 ALLERGIES: Please see list at end of report. HOME MEDICATIONS: Please see list at end of report. FH Mom of old age at 92. Father had lung cancer. SH Lives in her own home in [place]. 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 Daughter lives in [place]. Quit smoking at age 34. Occasional alcohol. No drugs. ROS CONSTITUTION: No new fever. HEENT: No change in vision or hearing. CV: Had some chest discomfort this AM with episode of respiratory distress. PULM: Cough persists. GI: No upset stomach, nausea, vomiting, constipation, or diarrhea. No blood in stool. : No new dysuria. MS: No new muscle or joint aches and pains. NEURO: No new numbness or tingling. INTEG: No rashes, lesions, or sores. ENDO: No heat or cold intolerance. No polydipsia or polyuria. HEME/LYMPH: No easy bruising or bleeding. No swollen glands. PSYCH: No change in mood or behavior. OBJECTIVE Temp 98.5 HR 89 RR 20 SpO2 96% 3 L Discharge weight: 60.6 kg GEN: Awake, alert, interactive. NAD at present. HEENT: EOMI, clear sclerae, mildly dry oral mucosa. CV: Regular without significant murmur. LUNGS: Diminished breath sounds but air movement audible in all lung weber. ABD: Soft, NT/ND with normal bowel sounds. EXTR: Trace ankle edema. Normal peripheral pulses. Warm, dry, well-perfused. INTEG: No rash. Age related changes. Dry skin. Pale complexion. NEURO: No focal motor neuro deficit. LABS: reviewed MICRO: reviewed from previous hospitalization: 11/03 Resp PCR Panel Negative 11/03 Blood culture PENDING SPEC #: [id number] ANNE: 11/03/16 STATUS: COMP REQ #: [id number] RECD: 11/03/[address]: THUY TOMAS MD Order Location: ED SOURCE: SPUTUM DESCRIPTION: EXPECTORAT Procedure Result Verified GRAM STAIN Final Verified 11/03/16 Source: SPUTUM / EXPECTORATED Order Location: EMERGENCY LARGE WBC >50/lpf FEW EPITHELIAL CELLS 0-5/lpf LARGE GRAM NEG COCCOBACILLI >100/oil MOD GRAM NEG DIPLOCOCCI 50-100/oil FEW GRAM POSITIVE COCCI 5-25/oil Culture Sputum Final Verified 11/07/16-1112 AM Source: SPUTUM / EXPECTORATED Order Location: EMERGENCY Source: Sputum Collected: 11/03/16 13:32 Site: EXPECTORAT Received : 11/03/16 22:28 Order#: [id number] [facility] Sputum/Lower Respiratory Culture FINAL 11/07/16 11:11 S Haemophilus influenzae Large amount Beta-lactamase Negative Normal respiratory abelino present S: Performed at:[place], [place] CLIA#[id number] JONES FOR RESULTS: * - NEW RESULT - RESULT WAS MODIFIED AFTER FINAL STATUS SET IMAGING REFERENCE 11/03/16 CHEST 1 VIEW, AP/PA ONLY* INDICATION: Shortness of breath. Frontal chest obtained at 1:38 p.m. and compared with 12/03/2011 Heart is mildly enlarged. Aorta is tortuous. There are mild chronic-appearing increased interstitial markings. There is no pneumothorax or pleural fluid. There is some infiltrate or scarring in the right base which appears chronic or recurrent compared with 12/03/2011. Severe underlying degenerative changes of both shoulders. IMPRESSION: Mild cardiomegaly with tortuous aorta. Chronic-appearing increased interstitial markings. There is some infiltrate or scarring in the right base which appears chronic or recurrent compared with 12/03/2011. Suggest followup as clinically warranted. ASSESSMENT Jina Campbell is a 89 year old female admitted to senior living 11/09 after acute hospitalization at this facility 11/03-11/08 for community acquired pneumonia. She was felt to benefit from close medical supervision of her resolving acute medical problems as well as PT/OT for physical deconditioning. PLAN * Physical Deconditioning: PT/OT eval and treat * Acute Respiratory Distress: Recurrent, likely due to mucus plugging in the setting of resolving pneumonia. Oxygen protocol. IS. Guaifenesin. Acapella. * Chest Pain: Mild and likely due to respiratory event this early AM. Now resolved, but check troponin this AM to ensure no acute change. * Bronchospasm: Duoneb scheduled, albuterol PRN. Considered prescribing at discharge but she improved significantly. Consider PFT in 4-6 weeks after recovery from this pneumonia. * Cough: Dextromethorphan, guaifenesin. Continued at discharge. * F/E/N: General diet. Peripheral IV placed at [facility]. But if stable, this can be removed in skilled care. * Prophylaxis: Enoxaparin * Code Status: DNR * Dispo: correction for above issues. CHRONIC ISSUES * HTN: Metoprolol * Constipation: Bowel regimen * Insomnia: Quetiapine RESOLVING ISSUES * Community Acquired Pneumonia due to Haemophilus influenzae: On the basis of sputum culture. Blood culture negative during acute stay was negative, as was resp PCR panel. Continue acapella. Guaifenesin, cefdinir course extended x 4 days. Follow-up CXR in 2 weeks. Allergies/Home Medications Allergies: Coded Allergies: Penicillins (Verified Allergy, Unknown, 11/03/16) celecoxib (Verified Allergy, Unknown, 11/03/16) clindamycin (Verified Allergy, Unknown, 11/03/16) iodine (Verified Allergy, Unknown, 11/03/16) meperidine (Verified Allergy, Unknown, 11/03/16) naproxen (Verified Allergy, Unknown, 11/03/16) Reported Home Medications Scheduled Cefdinir (Cefdinir) 300 MG PO BID Guaifenesin (Mucinex) 1,200 MG PO BID Metoprolol Succinate (Metoprolol Succinate) 25 MG PO DAILY (Reported) Mu-Vits-Min Th/Lycopene/Lutein (Centrum Silver Tablet) 1 EACH PO DAILY (Reported ) Psyllium Husk (Metamucil) 660 GM PO DAILY (Reported) Quetiapine Fumarate (Seroquel) 25 MG PO HS (Reported) Scheduled PRN Dextromethorphan (Robitussin Pediatric 7.5mg/5ml) 15 MG PO Q4H PRN PRN COUGH Discontinued Medications Acyclovir (Acyclovir) 400 MG PO BID (Reported) Discontinued Reason: No longer required Allopurinol (Allopurinol) 300 MG PO DAILY (Reported) Discontinued Reason: No longer required Famotidine (Pepcid) 20 MG PO (Reported) Discontinued Reason: Unknown Loratadine (Loratadine) 10 MG PO DAILY (Reported) Discontinued Reason: No longer required Metoprolol Succinate (Toprol XL) 50 MG PO DAILY (Reported) Discontinued Reason: Dose changed Sennosides (Senokot) 8.6 MG PO BID (Reported) Discontinued Reason: No longer required Trazodone HCl (Trazodone HCl) 50 MG PO PRN (Reported) Discontinued Reason: No longer required Copies to: End of Report . FRANCHESCA JOHN MD Nov 09, 2016 08:07
[2016-11-09] MEDS ORDERED: CEFDINIR 250 MG/5 ML SUSPENSION (OMNICEF) 60 ML BTL PO SCH (09:00)
[2016-11-09] MEDS: ENOXAPARIN 40 MG/0.4 ML (LOVENOX) SYR SC SCH ×2 (09:00→09:14)
[2016-11-09] MEDS: CEFDINIR 300 MG (OMNICEF) CAPSULE PO SCH ×2 (09:14→21:30)
[2016-11-09] MEDS: guaiFENesin ER 600 MG (MUCINEX) TAB PO SCH ×2 (09:14→21:30)
[2016-11-09] MEDS: PSYLLIUM SF (METAMUCIL) PACKET PO SCH (09:14)
[2016-11-09] MEDS: VIT A,C & E/LUTEIN/MINERALS (I-VITE) TABLET PO SCH (09:23)
[2016-11-09 09:54] LABS: BILIRUBIN,URINE Negative (Negative); CLARITY,URINE Clear; COLOR,URINE Yellow; GLUCOSE, URINE (UA) Negative (Negative); LEUKOCYTE ESTERASE ,URINE Negative (Negative); UROBILINOGEN,URINE 0.2 mg/dL (0.2-1.0)
--- NOTE | 2016-11-09 09:56 | NUR ---
0730- patient admitted to room 309 at this time. assessment is ongoing. 0800- care is explained and admission assessment is complete. no immediate distress. the patient has some mild head and neck pain. wet cough in upper airway and unable to clear secretions at this time. She slightly tachycardic but otherwise stable. She is alert and oriented and able to make needs known. daughter at the bedside to help explain situation and past events. 0900- up at the side of the bed for breakfast and medications.
--- NOTE | 2016-11-09 12:14 | NUR ---
Patient works with PT at this time. Will return to chair for lunch. She has no complaints, distress or pain at this time
--- NOTE | 2016-11-09 13:26 | Physical Therapy Evaluation(E) ---
Plan of Care STG Time Frame: 2 Days LTG Time Frame: 10 Days Goals Discussed/Agreed: Yes Plan: Gait & Transfer Training, Neuro Re-Education, Progressive Ambulation, Transfer Training, Therapy Excercise Initial Evaluation Service Date/Time 11/09/16, 13:07 Primary Diagnosis: (1) Chronic osteoarthritis ICD Code: 715.90 (2) Community acquired pneumonia ICD Code: J18.9 (3) SIRS (systemic inflammatory response syndrome) ICD Code: R65.10 (4) Weakness ICD Code: R53.1 Treatment Diagnosis: (1) Weakness ICD Code: R53.1 (2) Physical deconditioning ICD Code: R53.81 (3) Chronic osteoarthritis ICD Code: 715.90 Onset Date: 11/03/2016 Start of Care Date: Nov 09, 2016 Precaution/Isolation: Standard Precautions Fall Level: Low Risk 25-50 Initial Assessment Reason for Rehab: Increase Mobility, Increase Strength, Increase Balance, Increase Transfers, Increase Endurance Medical History: Other (Arthritis, back pain and spasms, [place], HTN, CLL, bilateral TKA, back surgery insomina) Pain Location/Comment Currently the patient denies pain. She does have fatigue in her abdominal muscles reported from coughing. Prior Level of Function The patient lives alone in her own home. She ambulates with walker, and reports her balance is impaired. Independent with ADLs, other than having someone come into clean her home. The patient has a daughter that lives in [place]. Rehabilitation Potential: Fair (Pt was initially hesitant to participate in therapy during her acute hospital stay last week. She is motivated to return home. ) Comment Per patient's report, back spasms limit her function. Rehab Potential Based on Patient also states she only wants PT and OT only once per day. Assistive Device: FWW Distance Walked in Feet Patient refused to ambulate this date secondary to her breathing difficulty, but stated she would ambulate tomorrow. Assist: Min Assist/Contact Guard Patient stands for 3 minutes at walker with no complaints of dizziness lightheadedness. Resting heart rate 85 bpm, 02 saturation 98%. ROM/Strength Hip Mobility: Right Hip Strength: 4 Left Hip Strength: 4 Knee Flexion Mobility: Right Knee Flexion Strength: 4- Left Knee Flexion Strength: 4- Knee Extension Mobility: Right Knee Extension Strength: 4 Left Knee Extension Strength: 4 Ankle Mobility: Right Ankle Strength: 4 Left Ankle Strength: 4- Assessment/Goals Initial Transfer Assessment Rolling: Not Assessed/NA Sit-Supine: Not Assessed/NA Sitting Edge of Bed: Supervision or setup (seated in chair. ) Supine-Sit: Not Assessed/NA (Patient was seated in recliner at start of evaluation. ) Sit-Stand from Bed: Contact Guard Assist Stand-Sit: Contact Guard Assist Ambulation: Not Assessed/NA (Patient declined ambulation this date secondary to her coughing. ) Transfer Short Term Goals Rolling: Modified [place] Sit-Supine: Modified [place] Sitting Edge of Bed: Modified [place] Supine-Sit: Modified [place] Sit-Stand from bed: Modified [place] Stand-Sit: Modified [place] Ambulation: Modified [place] Distance to Walk in Feet 100 feet with FWW on appropriate 02 level, maintaining 02 saturation above 90%. Transfer Housekeeper Child Care Goals Ambulation: Modified [place] (300 feet with FWW maintaining 02 saturation above 90%. ) Comment Additional assisted goals: 1) The patient will score a minimum of 19/28 on the Tinetti Balance Assessment. 2) The patient will improved standing tolerance to a minimum of 5 minutes. 3) The patient will tolerate a minimum of 10 minutes of seated/standing activity with no more than 2 rest breaks to demonstrate improved activity tolerance. Treatments Treatments Sit, Stand, Supine: Sitting Extremity: Both Lower Extremity Assistance: AROM Repetition: 1 x 20 Exercise: AP, LAQ Comment Treatment was ended secondary to patient's lunch arriving. Coding Time In: 1203 Time Out: 1226 Total Minutes: 23 Charges: 56389 Eval< 20 min, 80931 Exercise Therp 15 m GORDON MEHTA PT Nov 09, 2016 13:26
--- NOTE | 2016-11-09 13:43 | NUR ---
NUTRITION ASSESSMENT Level 1 Patient: Jina aCmpbell Age/Sex: 89/F Date Screened: 11-09-16 Weight: 133.3#/60.6 kg Height: 65 inches Primary Diagnosis: skilled for respiratory distress/physical deconditioning Diet Order: regular Relevant labs: N/A Food allergies: N Nutrition Assessment Criteria Age over 80: 4 points Body Mass Index (BMI) under 19: N Admission Screening Indicates Risk? N Moderate/High Risk Diagnosis: N TPN or PPN: N NPO or clear liquid diet: N Serum Glucose <70 or >180: N/A Hgb A1c >6.7: N/A Total: 4 points Risk Screen: __ Patient at low nutritional risk based on available data; reevaluate in 5-7 days _X_ Patient at moderate nutritional risk based on available data; reevaluate in 3-5 days __ Patient at high nutritional risk; complete Nutrition Assessment within 48 hours of admission. Comments: Patient admitted for skilled care after hospitalization with pneumonia last week. Appetite has been good, she was eating mostly 75-100% regular diet. Will reassess as documented above.
--- NOTE | 2016-11-09 14:37 | NUR ---
The patient is up in chair, under covers with eyes closed. No apparent distress at this time. Will continue to monitor
--- NOTE | 2016-11-09 15:07 | OT Therapy Evaluation (E) ---
POC Plan of Care Problems Identified: Activity Tolerance, ADLs, Balance, Lt UE Strength, Rt UE Strength, Safety Awareness Plan: Evaluation-OT, ADL/Self Care Management, Therapy Exercises, Therapy Activities, Pt/Family/Staff Education Frequency of OT: Five times weekly Duration of OT: Other (10 days ) Therapy to Include: ADL training, Balance with ADLs, Pt/family education, Therapeutic activities, UE strengthing Discharge Recommendations: Caregiver support Pt. Aware of Dx and Prognosis: Yes Pt. Aware of Risk & Benefit: Yes Goals: Discussed with patient, Discussed with family Short Term Goals STG Time Frame: 4 Days Will Perform Grooming: With Setup/SBA Will Dress Upper Extremity: With Setup/SBA Will Perform Funct Transfer: With Setup/SBA STG #1 Pt will participate in 15 min of ther-ex with use of energy conservation techniques as needed. STG #2 Pt will verbalize and demonstrate understanding of energy conservation techniques to improve performance during daily activities. Intermediate Goals LTG Time Frame: 10 Days Will Dress Upper Extremity: Independently Will Dress Lower Extremity: Independently Will do Tub/Shower Transfer: With Setup/SBA Will Bathe Self: With Setup/SBA Will do Toilet Transfers: Independently Will do Toilieting: Independently Will Perform Kitchen Mobility: Independently LTG # 1 Pt will participate in 5 minute functional standing activity with use of energy conservation techniques and diaphragmatic breathing as needed with independence to improve performance during simple IADL tasks at home. Inital Evaluation/General Service Date/Time 11/09/16, 14:58 Primary Diagnosis: (1) Chronic osteoarthritis ICD Code: 715.90 (2) Community acquired pneumonia ICD Code: J18.9 (3) SIRS (systemic inflammatory response syndrome) ICD Code: R65.10 (4) Weakness ICD Code: R53.1 Treatment Diagnosis: Onset Date: 11/03/16 Start of Care Date: Nov 09, 2016 Precaution/Isolation: Standard Precautions Fall Level: Low Risk 25-50 Reason for Referral: Activity Tolerance, Evaluation and Treat Pertinent Medical History: Other (Arthritis, back pain and spasms, [place], HTN, CLL, bilateral TKA, back surgery insomina) History Comment Pt was treated for pneumonia in this facility from 11/03/16 to 11/08/16. Pt denied skilled therapy services and discharged with home health. Pain Level: 0 Oxygen Needed: Nasal cannula O2 liters/minute: 3 Rehabilitation Potential: Fair Potential Based On Patient's willingness to participate in therapy. Rational for Skilled Treatment: Allow return to home, Deconditioning, Maximize Safety, Prevent Falls Living Status Prior to Admit: Alone Prior Level of Function: Independent ADLs Prior to onset of pneumonia, pt was independent in all self care tasks. Reports difficulty with opening and manipulating containers secondary to arthritis. Use of compensatory strategies and assistive equipment to help open containers. Pt completes simple IADL tasks of cooking, cleaning, medication management and shopping. Pt still drives prior to onset. Pt has a supportive daughter in the [place] area and comes visit everyday of the week. Plans Following Discharge: Return Home Support Persons: Adult Child (3 supportive children) Entry Into Home: Level Entry Shower and Tub Type: Walk in/curtain-grab bars Assist Devices: Front Wheel Walker, SPC, 4 WW Toilet Type: Raised with grab bars Comment Pt uses FWW for functional mobility to the bathroom. Uses 4-wheeled walker throughout the rest of the home. Pt will use a quad cane within the store. Pt wears and LifeAlert. Current Function Assessment Mental Status Patient Orientation: Person Mental Status: Alert Cognition Attention: Intact Memory: Impaired Safety/Judgement: Impaired Visual/Perceptual Skills Glassess: Yes (Lined trifocals ) Hearing: Impaired Hand Dominance Hand Dominance: Right ROM/Strength ROM Comment Limited active shoulder ROM secondary to arthritis. Grossly 80 degrees of shoulder flexion. Compensates at neck to complete washing of hair. Able to complete full elbow flexion and extension. Strength Comment Bilateral shoulder flexion and abduction 3-/5 Elbow flexion and extension of BUE's 4-/5 Neurological Coordination: Minimally impaired Endurance Activity Endurance: Becomes SOB, Instructions provided, Needs energy saving techn, Poor, Requires freq rest breaks Bed Mobility/Transfers Sit to Stand: Minimum assist Chair Transfer: Minimum assist Sitting Balance: WFL Pt would not complete functional mobility this date. States she is saving to walk for tomorrow. Per pt report, states she has been getting up and ambulating to the bathroom. ADLs Hand : Feeding Self: Independent Dressing Dressing: Minimum assist Clothing Retrieval: Moderate assist Bathing Shower/Bench Transfer Ability: Minimum assist Bathing- Type of Assistance: Minimum Assist Toileting Toilet Hygiene: Moderate Assist Toilet Transfer Ability: CGA Additional Assessment/Comments The patient presents with decreased strength, decreased safety awareness, decreased activity tolerance for performance of self care tasks and decreased independence with self care tasks including dressing, bathing, toileting and grooming. Pt's comorbidity of arthritis affect's patients occupational performance. Pt demonstrates a moderate level complexity due to performance deficits resulting in participation restrictions, requiring modification of assessments and minimal safety cueing during evaluation. CPT/G Codes Time In: 14:50 Time Out: 3:23 Total Minutes: 30 (15 eval, 18 ADL) CPT Codes: 12050 Eval< 20 minutes, 25384 ADL EA (Patient participated in activity assessment to assess patient's interests and hobbies to better understand pt's goals and build rapport with patient. With daughter present, educated on the importance of getting up and moving around consistently throughout the day to improve overall endurance for daily activities, prevent strength decline and risk for falls. Per daughter report, she states pt is very inactive throughout the day. Educated on the use of energy conservation techniques and alternating between light and heavier activities for improved performance in meaningful activities. Additionally, provided education on diagphramagtic breathing to ease shortness of breathing during functional activities. Required cueing for proper technique. Will assess carryover of education during self care tasks and functional activities next session. ) TERRELL LOBO OT Nov 09, 2016 15:06
--- NOTE | 2016-11-09 15:09 | NUR ---
OT is in the room with patient.
[2016-11-09] MEDS: ALBUTEROL/IPRATROPIUM 3MG-0.5MG/3ML (DUONEB) NEB VIAL INH SCH ×3 (15:24→19:51)
--- NOTE | 2016-11-09 16:15 | OT Activity Assessment (E) ---
Activity Assessment Service Date/Time 11/09/16, 16:10 Activities Games: Bingo, Doninoes, Scrabble Card Games: Pinochic, Rummy, Soliarie Exercise: Walking Gardening: Harvey, Vegetables Outing: Fishing, Shopping Music: Classical Puzzles: Crossword, Word scramble, Word search, Other (Suduko) Just for Fun: Music programs Sports: Baseball, Bowling, Fishing Television: Games, Movies Reading: Magazines, Mysteries, Romance Comment Pt enjoys games including, solitaire, rummy, pinochle. Pt also enjoys puzzles including word searches and suduko. Pt majored in music and played the piano. Enjoyed gardening and making some clothing items growing up. Pt would benefit from participating in card games, puzzles or offering reading material of mysteries, romance or magazines. TERRELL LOBO OT Nov 09, 2016 16:14
[2016-11-09 16:27] VITALS: BP 134/66
--- NOTE | 2016-11-09 18:16 | NUR ---
the patient is up in chair with daughter at the bedside. They eat supper and play cards together this afternoon. She has no concerns and no distress. She is able to make her needs known.
--- NOTE | 2016-11-09 19:10 | NUR ---
report given to Dana ABBASI and care relinquished
--- NOTE | 2016-11-09 19:55 | NUR ---
Pt found sitting in her chair on 1 l/min NC, SPO2 94%, HR 84, RR 18 and non labored with slightly coarse BS before and after Duoneb via SVN/MASK. Acapella being used on her own. Pt has a loose NPC.
[2016-11-09] MEDS: QUEtiapine 25 MG (SEROquel) TAB IMMEDIATE RELEASE PO SCH (21:30)
[2016-11-09] MEDS: DEXTROMETHORPHAN 15 MG/10 ML UDC PO PRN (22:26)
[2016-11-10 00:11] VITALS: BP 133/92
[2016-11-10 06:02] LABS: MEAN CORPUSCULAR HGB CONC 34.4 g/dL (31.0-37.0); MEAN CORPUSCULAR VOLUME 93 FL (80-100); PLATELET COUNT 168 10^3uL (150-450); WHITE BLOOD COUNT 6.15 10^3uL (4.0-11.0)
[2016-11-10 06:10] LABS: MEAN CORPUSCULAR HEMOGLOBIN 31.8 PG (26.0-34.0)
[2016-11-10 06:16] LABS: BAND NEUTROPHILS % 3 % (0-6); EOSINOPHILS % 0 % (0-4); LYMPHOCYTES # 0.4 #; MONOCYTES % 0 % (3-11); RBC MORPH NORMAL (NORMAL); SEGMENTED NEUTROPHILS % 91 % (51-67); TOTAL CELLS COUNTED 100
--- NOTE | 2016-11-10 06:30 | NUR ---
Patient rested well last night. Sat in the recliner with her feet elevated till 11pm. Is alert and oriented. Very particular on what and how she wants things done. Does call for help to assist her to the bathroom. Voiding without difficulty. Oxygen remains on at 1 liter per n/c. Was given Phenergan cough medicine last night prior to sleep, per her request. Patient has a loose non-productive cough. Call light within reach at all times.
[2016-11-10 06:48] LABS: ALBUMIN 2.9 g/dL (3.4-5.0); ANION GAP 11.3 MEQ/L (3-15); PHOSPHORUS 3.6 mg/dL (2.4-4.9)
[2016-11-10 08:00] VITALS: BP 130/64
[2016-11-10] MEDS: ALBUTEROL/IPRATROPIUM 3MG-0.5MG/3ML (DUONEB) NEB VIAL INH SCH ×3 (08:18→20:02)
[2016-11-10] MEDS: ENOXAPARIN 40 MG/0.4 ML (LOVENOX) SYR SC SCH (09:00)
[2016-11-10] MEDS: PSYLLIUM SF (METAMUCIL) PACKET PO SCH (09:16)
[2016-11-10] MEDS: guaiFENesin ER 600 MG (MUCINEX) TAB PO SCH ×2 (09:17→20:57)
[2016-11-10] MEDS: VIT A,C & E/LUTEIN/MINERALS (I-VITE) TABLET PO SCH (09:17)
[2016-11-10] MEDS: CEFDINIR 300 MG (OMNICEF) CAPSULE PO SCH ×2 (09:17→20:56)
[2016-11-10] MEDS: DEXTROMETHORPHAN 15 MG/10 ML UDC PO PRN ×2 (09:18→16:38)
--- NOTE | 2016-11-10 10:34 | OT Daily Note Inpatient (E) ---
OT Daily Treatment Service Date/Time 11/10/16, 10:26 Primary Diagnosis: (1) Chronic osteoarthritis ICD Code: 715.90 (2) Community acquired pneumonia ICD Code: J18.9 (3) SIRS (systemic inflammatory response syndrome) ICD Code: R65.10 (4) Weakness ICD Code: R53.1 Treatment Diagnosis: Onset Date: 11/03/16 Start of Care Date: Nov 09, 2016 Precaution/Isolation: Standard Precautions Fall Level: Low Risk 25-50 Current Activity: Agrees to participate, Up in chair Im just bone on bone. I can't do that. I cant wipe myself. I have a table /hi- rise toilet that i can wipe just fine at home. Pain Location/Comment Primarily with activity Oxygen Needed: Nasal cannula O2 liters/minute: 1 Current Function Assessment Mental Status Mental Status: Alert Cognition Attention: Intact Memory: Impaired Safety/Judgement: Impaired Visual/Perceptual Skills Glassess: Yes (Lined trifocals ) Hearing: Impaired Hand Dominance Hand Dominance: Right Endurance Activity Endurance: Becomes SOB, Needs energy saving techn, Requires freq rest breaks Bed Mobility/Transfers Sit to Stand: SBA Chair Transfer: SBA, CGA Sitting Balance: WFL Pt 02 96% on 1 L02. functional ambulation in hallway CGA with FWW on 1 L portable 02. o2 stats were 95% after 150 feet with mild SOA Dressing Dressing Upper Body w Assist: Reaching back, Shoulder Comment MIN/MOD A for donning gown Toileting Toilet Hygiene: Maximum Assist (educated in [facility] alessio but not interested/ refused) Treatments Strengthening Exercise Upper Extremity Strength Exerc : Upper Extremity: Bilateral Exercise Type: AROM Other Repetitions 10 - 20 exercises Amount of Resistance: 0 lbs (shoulders, elbow, wrist, fingers in all ranges and planes to increase ROm for ADLS) Education/Assessment Treatment Tolerance: Luther trmnt w/o complaints Problems Impacting Treatment: Deconditioning, Poorly motivated, SOB w/ activity Rehabilitation Potential: Fair functional ambulation in hallway CGA with FWW on 1 L portable 02. o2 stats were 95% after 150 feet with mild SOA POC Plan of Care Problems Identified: Activity Tolerance, ADLs, Balance, Lt UE Strength, Rt UE Strength, Safety Awareness Plan: Evaluation-OT, ADL/Self Care Management, Therapy Exercises, Therapy Activities, Pt/Family/Staff Education Frequency of OT: Five times weekly Duration of OT: Other (10 days ) Therapy to Include: ADL training, Balance with ADLs, Pt/family education, Therapeutic activities, UE strengthing Discharge Recommendations: Caregiver support Pt. Aware of Dx and Prognosis: Yes Pt. Aware of Risk & Benefit: Yes Goals: Discussed with patient, Discussed with family Short Term Goals STG Time Frame: 4 Days Will Perform Grooming: With Setup/SBA Will Dress Upper Extremity: With Setup/SBA (min) Will Perform Funct Transfer: With Setup/SBA (sba) STG #1 Pt will participate in 15 min of ther-ex with use of energy conservation techniques as needed. MET AROM STG #2 Pt will verbalize and demonstrate understanding of energy conservation techniques to improve performance during daily activities. Assisted Goals LTG Time Frame: 10 Days Will Dress Upper Extremity: Independently Will Dress Lower Extremity: Independently Will do Tub/Shower Transfer: With Setup/SBA Will Bathe Self: With Setup/SBA Will do Toilet Transfers: Independently Will do Toilieting: Independently Will Perform Kitchen Mobility: Independently LTG # 1 Pt will participate in 5 minute functional standing activity with use of energy conservation techniques and diaphragmatic breathing as needed with independence to improve performance during simple IADL tasks at home. MET with functional amb 150 CPT/G Codes Time In: 936 Time Out: 1015 Total Minutes: 38 CPT Codes: 96271 Exercise Ther (15), 99206 ADL EA (23) Shamika Abrams Nov 10, 2016 10:34
--- NOTE | 2016-11-10 12:28 | NUR ---
Pt. has been sitting up in chair, denies pain. She has had a persistent cough that she requests cough syrup for as often as she can have it. She refused Lovenox this am.
--- NOTE | 2016-11-10 12:30 | NUR ---
MULTIDISCIPLINARY MTG/DR. MATHIS: Pt. presented to [facility] complaining she wasn't able to breath. Agreed Pt. could come back to this facility for skilled care. Pt. is doing better and will to participate in skilled care.
--- NOTE | 2016-11-10 17:02 | PT Daily Note Inpatient (E) ---
PT Daily Treatment Service Date/Time 11/10/16, 16:57 Medical Diagnosis: (1) Chronic osteoarthritis ICD Code: 715.90 (2) Community acquired pneumonia ICD Code: J18.9 (3) SIRS (systemic inflammatory response syndrome) ICD Code: R65.10 (4) Weakness ICD Code: R53.1 Physical Therapy: (1) Weakness ICD Code: R53.1 (2) Physical deconditioning ICD Code: R53.81 (3) Chronic osteoarthritis ICD Code: 715.90 Precaution/Isolation: Standard Precautions Fall Level: Low Risk 25-50 Barriers Limiting Function: Activity Tolerance, Pain Subjective Patient seen in afternoon, reports she felt like her hands are cramping from OT session this morning, some light back issues last night. Oxygen Delivery: Nasal cannula O2 liters/minute: 1 Treatments Sit, Stand, Supine: Sitting Extremity: Both Lower Extremity Assistance: AROM Repetition: 2 x 10 Exercise: AP, LAQ, Hip Flexion Transfers Sit-Stand from bed: Supervision or setup Stand-Sit: Supervision or setup (Positioned patient's BLE into more supportive positiong for low back to decrease pain discomfort. ) Gait Ambulation: Supervision or setup Distance Walked: 166 feet with FWW. New FWW obtained for patient secondary to her feeling like the one she was using pulled to the left. Education/Plan Education Education Needs: Use of Devices/Equipment Importance of slowly progressing her activity level to improve her transition to home. Assessment Patient demonstrating improve activity tolerance but refuses to do more activity when PT suggests. Patient resting in recliner at end of session, call light in reach. Safety Awareness: Intact Coding Time In: 1533 Time Out: 1602 Total Minutes: 29 Charges: 82630 Exercise Therp 15 m, 14581 Gait Training 15 GORDON Bruno PT Nov 10, 2016 17:02
--- NOTE | 2016-11-10 18:15 | NUR ---
Pt. sitting up in chair. She states that the cough syrup has not seemed to help much for her cough. Dr. Curiel will be in to see pt. soon. Encouraged pt. to discuss with Dr. Curiel. Pt. denies pain or other needs at this time.
--- NOTE | 2016-11-10 19:03 | Progress Note-A/P (E) ---
Progress Note Subjective: Patient continues to report a cough that is very bothersome to her. She otherwise feels well. She is working with PT. She states she feels strong. Discussed care and plan. Objective: Current Medications Albuterol/ Ipratropium 3 ml RTTID INH Albuterol Sulfate 0.083% Neb Solution 2.5 mg Q4H PRN INH Guaifenesin 1,200 mg BID PO Dextromethorphan 15 mg Q4H PRN PO Acetaminophen 650 mg Q6H PRN PO Calcium Carbonate 300 mg Q8H PRN PO Al Hydrox/Mg Hydrox/Simethicone 30 ml Q6H PRN PO Ondansetron 4 mg Q6HR PRN PO Magnesium Hydroxide 30 ml DAILY PRN PO Polyethylene Glycol 17 gm DAILY PRN PO Docusate 100 mg BID PRN PO Enoxaparin 40 mg DAILY SC Cefdinir 300 mg Q12HR PO Metoprolol Succinate 25 mg DAILY PO Quetiapine Fumarate 25 mg HS PO Multivitamins/ Minerals 1 each DAILY PO Psyllium Hydrophilic Mucilloid 1 each DAILY PO Vital Signs Date Time Temp Pulse Resp B/P Pulse Ox O2 Delivery O2 Flow Rate FiO2 11/10/16 08:00 97.7 97 22 130/64 92 Nasal cannula I & O Past 24 hrs 11/10/16 07:00 Intake Total 1829 ml Output Total 1800 ml Balance 29 ml Intake Oral 1829 ml Output Urine Total 1800 ml # Bowel Movements 2 Physical Exam General--Awake and alert. No distress. HEENT--Normocephalic. MMM in oral cavity. NC in place. Lungs--Clear to auscultation bilaterally. Nonlabored respirations. Heart--RRR. No murmurs. Abdomen--Normal bowel sounds. Soft. Nondistended. Nontender. Extremities--Trace edema to bilateral lower extremities, L>R. Past 24 hour Lab Results 11/10/16 05:45 Laboratory Results Past 24 Hrs 11/10/16 05:45: Absolute Band Neutrophils 0.2, Albumin 2.9, Anion Gap 11.3, Band Neutrophils % 3 , Basophils # (Auto) , Basophils # (Manual) 0.0, Basophils % (Manual) 0, Basophils (%) (Auto) , Blood Morphology Comment Normal, Blood Urea Nitrogen 24, C-Reactive Protein 7.10, Calcium Level 8.7, Carbon Dioxide Level 29, Chloride Level 101, Creatinine 0.63, Differential Total Cells Counted 100, Eosinophils # 0.0, Eosinophils # (Auto) , Eosinophils % (Manual) 0, Eosinophils (%) (Auto) , Estimat Glomerular Filtration Rate 107.9, Estimated GFR (Non- 89.2, Glucose Level 143, Hematocrit 29.10, Hemoglobin 10.0, Lymphocytes # 0.4, Lymphocytes # (Auto) , Lymphocytes % (Manual) 6, Lymphocytes (%) (Auto) , Mean Corpuscular Hemoglobin 31.8, Mean Corpuscular Hemoglobin Concent 34.4, Mean Corpuscular Volume 93, Mean Platelet Volume 10.0, Metamyelocytes % 0, Monocytes # 0.0, Monocytes # (Auto) , Monocytes % (Manual) 0, Monocytes (%) (Auto) , Neutrophils # 5.6, Neutrophils # (Auto) , Neutrophils (%) (Auto) , Phosphorus Level 3.6, Platelet Count 168, Potassium Level 4.1, Red Blood Count 3.14, Red Cell Distribution Width 13.9, Segmented Neutrophils % 91, Sodium Level 137, White Blood Count 6.15 Assessment/Plan Physical Deconditioning Continue PT/OT. Acute Hypoxic Respiratory Failure Secondary to CAP. Continue to wean oxygen. IS. Acapella. Guaifenesin. Cough Continue dextromethorphan and guaifenesin. Adding benzonatate as patient continues to report a bothersome cough. Community Acquired Pneumonia Resolving. Blood cultures negative. Sputum culture noted above shows a haemophilus species , treated on last admission. Resp PCR panel negative. F/u CXR in 2 weeks. Chest pain Mild on admission, resolved by time patient was on the floor. Troponin was negative. Bronchospasm Duoneb scheduled and albuterol PRN. Consider prescribing at discharge. PFT's as an outpatient. HTN Metoprolol per home dose. Constipation Bowel regimen (metamucil) per home dose. Insomnia Quetiapine per home dose. FEN General diet. Electrolytes are normal. Prophylaxis Enoxaparin. Code Status DNR. Dispo Swing bed for above issues. Continue to wean oxygen. RICKIE MATHIS MD Nov 10, 2016 19:02
--- NOTE | 2016-11-10 20:15 | NUR ---
Pt found sitting in her chair, SPO2 94% in 1 l/min NC, HR 124, Pt had jut returned from the shower and her HR recovered to 100 within the time of my visit. BS clear before and after Duone[facility] via SVN/MASK.
[2016-11-10] MEDS: BENZONATATE 100 MG (TESSALON) CAPSULE PO PRN (20:56)
[2016-11-10] MEDS: QUEtiapine 25 MG (SEROquel) TAB IMMEDIATE RELEASE PO SCH (20:57)
[2016-11-11 00:51] VITALS: BP 130/66
--- NOTE | 2016-11-11 06:29 | NUR ---
Patient rests in bed throughout night. O2 on 0.5L, SaO2 >91%. Patient up with stand by assistance to bathroom. No needs at this time.
[2016-11-11] MEDS: ALBUTEROL/IPRATROPIUM 3MG-0.5MG/3ML (DUONEB) NEB VIAL INH SCH (07:39)
[2016-11-11 07:41] VITALS: BP 115/66
--- NOTE | 2016-11-11 07:45 | NUR ---
Patient sitting up in recliner upon shift assessment. Alert and oriented X3. Denies pain or distress at this time. Reports cough is "not bad" this morning. Trace edema noted to BLE. Patient encouraged to elevate legs when resting. Updated on plan of care for shift. Call light in reach.
[2016-11-11] MEDS: VIT A,C & E/LUTEIN/MINERALS (I-VITE) TABLET PO SCH (08:51)
[2016-11-11] MEDS: PSYLLIUM SF (METAMUCIL) PACKET PO SCH (08:51)
[2016-11-11] MEDS: ENOXAPARIN 40 MG/0.4 ML (LOVENOX) SYR SC SCH (08:51)
[2016-11-11] MEDS: CEFDINIR 300 MG (OMNICEF) CAPSULE PO SCH ×2 (08:51→20:17)
[2016-11-11] MEDS: guaiFENesin ER 600 MG (MUCINEX) TAB PO SCH ×2 (08:51→20:17)
--- NOTE | 2016-11-11 09:37 | PT Daily Note Inpatient (E) ---
PT Daily Treatment Service Date/Time 11/11/16, 09:30 Medical Diagnosis: (1) Chronic osteoarthritis ICD Code: 715.90 (2) Community acquired pneumonia ICD Code: J18.9 (3) SIRS (systemic inflammatory response syndrome) ICD Code: R65.10 (4) Weakness ICD Code: R53.1 Physical Therapy: (1) Weakness ICD Code: R53.1 (2) Physical deconditioning ICD Code: R53.81 (3) Chronic osteoarthritis ICD Code: 715.90 Precaution/Isolation: Standard Precautions Fall Level: Low Risk 25-50 Barriers Limiting Function: Activity Tolerance, Pain Subjective Pt in chair, agrees to therapy, "but not much, it's early in the morning and I don't want to have back spasms" Pain Level: 0 Oxygen Delivery: Room air (95% on RA after treatment) Treatments Sit, Stand, Supine: Sitting (pt refuses to elevate legs for long sitting exercises) Extremity: Both Lower Extremity Assistance: AROM Repetition: 2 x 10 Exercise: Hip Abduction, SLR, LAQ, Hip Flexion, TR, HR Comment pt becomes agitated with therapist when encouraged to do the exercises recommended in a safe environment, to help prevent back spasms Stretching refused stretching Transfers Sit-Stand from bed: Supervision or setup Stand-Sit: Supervision or setup Gait Ambulation: Supervision or setup Distance Walked: 120' pt refuses seated rest break and further ambulation, "I know what I can do" Weight Bearing Status: Full Assistive Device: FWW Gait Assist: Supervision Required Gait Description: Safe w/ Assistive Device, Flexed Trunk (cues provided for upright posture to relieve pain in back, pt refuses) Education/Plan Education Assessment challenging pt, not able to accept therapist recommendation on gait and exercise in order to return safely back to home Safety Awareness: Impaired Response to Treatment: Improving Plan Cont POC Patient will be seen: Daily Discharge Recommendations: Caregiver support Coding Time In: 908 Time Out: 928 Total Minutes: 20 Charges: 00844 Exercise Therp JADYN Ang PTA Nov 11, 2016 09:37
--- NOTE | 2016-11-11 11:21 | OT Daily Note Inpatient (E) ---
OT Daily Treatment Service Date/Time 11/11/16, 11:11 Primary Diagnosis: (1) Chronic osteoarthritis ICD Code: 715.90 (2) Community acquired pneumonia ICD Code: J18.9 (3) SIRS (systemic inflammatory response syndrome) ICD Code: R65.10 (4) Weakness ICD Code: R53.1 Treatment Diagnosis: Onset Date: 11/03/16 Start of Care Date: Nov 09, 2016 Precaution/Isolation: Standard Precautions Fall Level: Low Risk 25-50 Current Activity: Agitated, Resistant to treatment, Up in chair I am not getting dressed why Im in the hospital that is ridiculous. I am not doing any exercises. I was up all night because of the hand exercises. I could play cards without my hand locking up on me. Pt later apologized to LEARY for outburst. Discussed with MD to talk to her about dressing. Pain Location/Comment Pain with activity Oxygen Needed: Room air (95% on RA after treatment) Current Function Assessment Mental Status Mental Status: Agitated Cognition Attention: Intact Memory: Impaired Safety/Judgement: Impaired Visual/Perceptual Skills Glassess: Yes (Lined trifocals ) Hearing: Impaired Hand Dominance Hand Dominance: Right Skin and Positioning Positioning: Use back cushion, Use seat cushion, Other Bed Mobility/Transfers Sit to Stand: SBA Chair Transfer: SBA ADLs Grooming: Grooming Position: Standing at counter Grooming Status: Setup/SBA (Stood at sink for grooming of teeth with no LOB or SOA) Dressing refused Additional Assessment/Comments Pt abmulated for functional mobility with SBA/FWW for 200 feet with no SOA. Complained that it hurt her back. Educated to stand up straight to decrease back pain. Pt states her FWW is not high enough. Adjusted FWW up 1" . Changed out recliner to increase comfort and decrease pressure. Treatments Strengthening Exercise Upper Extremity Strength Exerc : Comment refuses Education/Assessment Treatment Tolerance: Luther trmnt w/ complaints Problems Impacting Treatment: Deconditioning, Poorly motivated, SOB w/ activity Rehabilitation Potential: Fair POC Plan of Care Problems Identified: Activity Tolerance, ADLs, Balance, Lt UE Strength, Rt UE Strength, Safety Awareness Plan: Evaluation-OT, ADL/Self Care Management, Therapy Exercises, Therapy Activities, Pt/Family/Staff Education Frequency of OT: Five times weekly Duration of OT: Other (10 days ) Therapy to Include: ADL training, Balance with ADLs, Pt/family education, Therapeutic activities, UE strengthing Discharge Recommendations: Caregiver support Pt. Aware of Dx and Prognosis: Yes Pt. Aware of Risk & Benefit: Yes Goals: Discussed with patient, Discussed with family Short Term Goals STG Time Frame: 4 Days Will Perform Grooming: With Setup/SBA (met) Will Dress Upper Extremity: With Setup/SBA (min) Will Perform Funct Transfer: With Setup/SBA (sba) STG #1 Pt will participate in 15 min of ther-ex with use of energy conservation techniques as needed. MET AROM STG #2 Pt will verbalize and demonstrate understanding of energy conservation techniques to improve performance during daily activities. Senior Living Goals LTG Time Frame: 10 Days Will Dress Upper Extremity: Independently Will Dress Lower Extremity: Independently Will do Tub/Shower Transfer: With Setup/SBA Will Bathe Self: With Setup/SBA Will do Toilet Transfers: Independently Will do Toilieting: Independently Will Perform Kitchen Mobility: Independently LTG # 1 Pt will participate in 5 minute functional standing activity with use of energy conservation techniques and diaphragmatic breathing as needed with independence to improve performance during simple IADL tasks at home. MET with functional amb 150 CPT/G Codes Time In: 1009 Time Out: 1057 Total Minutes: 28 CPT Codes: 24811 ADL EA Shamika Abrams Nov 11, 2016 11:21
[2016-11-11] MEDS ORDERED: NAPROXEN 250 MG (NAPROSYN) TABLET PO PRN (14:30)
[2016-11-11] MEDS: ACETAMINOPHEN 325 MG TAB (TYLENOL) PO PRN ×2 (14:42→21:42)
[2016-11-11] MEDS: DEXTROMETHORPHAN 15 MG/10 ML UDC PO PRN (14:42)
--- NOTE | 2016-11-11 14:46 | PT Daily Note Inpatient (E) ---
PT Daily Treatment Service Date/Time 11/11/16, 14:42 Medical Diagnosis: (1) Chronic osteoarthritis ICD Code: 715.90 (2) Community acquired pneumonia ICD Code: J18.9 (3) SIRS (systemic inflammatory response syndrome) ICD Code: R65.10 (4) Weakness ICD Code: R53.1 Physical Therapy: (1) Weakness ICD Code: R53.1 (2) Physical deconditioning ICD Code: R53.81 (3) Chronic osteoarthritis ICD Code: 715.90 Precaution/Isolation: Standard Precautions Fall Level: Low Risk 25-50 Barriers Limiting Function: Activity Tolerance, Pain Subjective pt in chair playing cards with daughter (from [place]), agrees to afternoon therapy session Pain Location/Comment c/o some rib and back pain, in to talk about this with pt Oxygen Delivery: Room air (95% on RA after treatment) Treatments Sit, Stand, Supine: Sitting Extremity: Both Lower Extremity Assistance: AROM Repetition: 2 x 10 Exercise: LAQ, Hip Flexion Transfers Sit-Stand from bed: Supervision or setup Stand-Sit: Supervision or setup Gait Ambulation: Supervision or setup Distance Walked: 180' Weight Bearing Status: Full Assistive Device: FWW Gait Assist: Supervision Required Gait Description: Safe w/ Assistive Device, Flexed Trunk (c/o back pain with gait, encouraged pt to walk closer to her FWW with a more upright posture, pt does not take advice) Gait Training: Limitations: Fatigue Education/Plan Education Education Needs: Use of Devices/Equipment repeatedly ask pt to conserve energy with walking closer to FWW and more upright to lessen her back pain. Assessment pt more cooperative this afternoon, tolerates gait and ex. well Safety Awareness: Impaired Response to Treatment: Improving Plan Cont POC Patient will be seen: Daily Discharge Recommendations: Caregiver support Coding Time In: 1417 Time Out: 1438 Total Minutes: 21 Charges: 97704 Strap Zainab Unna Boot, 58039 Exercise Therp Uma m JADYN SMITH PTA Nov 11, 2016 14:46
[2016-11-11 15:06] VITALS: BP 120/60
--- NOTE | 2016-11-11 18:05 | NUR ---
Patient remains in recliner throughout day shift. Ambulates into bathroom with standby assist and walker. Pleasant and cooperative with cares. Daughter here most of afternoon and plays cards with patient. Denies needs at this time. Call light in reach.
--- NOTE | 2016-11-11 20:46 | NUR ---
Pt sitting up in chair reading a book. Denies pain. Skin WDI. Resprs nonlabored, even on RA. Denies needs. Call light within reach.
[2016-11-11] MEDS: QUEtiapine 25 MG (SEROquel) TAB IMMEDIATE RELEASE PO SCH (21:39)
--- NOTE | 2016-11-11 21:42 | NUR ---
PRN Tylenol given at this time for c/o mild back pain. Denies other needs.
[2016-11-12 00:18] VITALS: BP 118/55
--- NOTE | 2016-11-12 05:49 | NUR ---
PT is laying in bed asleep, appears to be comfortable, on room air, SPO2 90%.
--- NOTE | 2016-11-12 05:56 | NUR ---
Pt rested well this shift. Called for assistance to toilet x2. Skin warm, dry, intact. Resprs nonlabored, even on RA. Denies needs.
[2016-11-12 07:28] VITALS: BP 147/75
--- NOTE | 2016-11-12 07:50 | NUR ---
Patient resting in recliner upon shift assessment. Alert and oriented X3. Denies pain but reports persistent hacking cough. PRN Tessalon Pearls provided. Lung sounds remain clear. HR RRR. No edema noted to BLE. ZULMA sloan applied. Updated on plan of care for shift. Call light in reach.
[2016-11-12] MEDS: PSYLLIUM SF (METAMUCIL) PACKET PO SCH (08:40)
[2016-11-12] MEDS: ENOXAPARIN 40 MG/0.4 ML (LOVENOX) SYR SC SCH (08:41)
[2016-11-12] MEDS: CEFDINIR 300 MG (OMNICEF) CAPSULE PO SCH ×2 (08:41→20:37)
[2016-11-12] MEDS: guaiFENesin ER 600 MG (MUCINEX) TAB PO SCH ×2 (08:41→20:37)
[2016-11-12] MEDS: VIT A,C & E/LUTEIN/MINERALS (I-VITE) TABLET PO SCH (08:41)
[2016-11-12] MEDS: BENZONATATE 100 MG (TESSALON) CAPSULE PO PRN ×2 (08:41→20:37)
[2016-11-12] MEDS: ACETAMINOPHEN 325 MG TAB (TYLENOL) PO PRN (10:22)
--- NOTE | 2016-11-12 10:34 | NUR ---
PRN Tylenol provided for c/o lower back pain rated 5/10 on pain scale. Will continue to monitor.
--- NOTE | 2016-11-12 10:49 | NUR ---
Nutrition Follow Up: Eating 100% of regular diet the past 2 days, improved from admission. She is somewhat agreeable for therapy, but refused OT yesterday. Weight today: N/A (skilled) Labs: N/A (skilled) 1. Continue regular diet as ordered, with supplemental snacks if patient wishes. No nutritional concerns at this time.
--- NOTE | 2016-11-12 11:49 | PT Daily Note Inpatient (E) ---
PT Daily Treatment Service Date/Time 11/12/16, 11:36 Medical Diagnosis: (1) Chronic osteoarthritis ICD Code: 715.90 (2) Community acquired pneumonia ICD Code: J18.9 (3) SIRS (systemic inflammatory response syndrome) ICD Code: R65.10 (4) Weakness ICD Code: R53.1 Physical Therapy: (1) Weakness ICD Code: R53.1 (2) Physical deconditioning ICD Code: R53.81 (3) Chronic osteoarthritis ICD Code: 715.90 Precaution/Isolation: Standard Precautions Fall Level: Low Risk 25-50 Barriers Limiting Function: Activity Tolerance, Pain Subjective Patient seated in recliner at start of session and was willing to participate in treatment. She is on room air this date. Pt had shower prior to treatment. Patient did voice why she was having to go through this because she fees like her time is winding down, PT did pass this information along to nurse. PT educated the patient once again on the purpose of receiving therapy services to get her stronger and improved activity tolerance prior to returning home. Patient also has voiced unsteadiness in the past, however when PT recommended working on standing balance today patient stated balance wasn't a problem for her. With some education patient did cooperate in static standing balance activities. Pain Location/Comment Patient had Tylenol for low back pain. Oxygen Delivery: Room air Treatments Assistance: AROM Repetition: 1 x 10 Exercise: AP, LAQ Static Balance: WBOS (working on lateral weight shifting without UE assistance ; semi tandem fwd/bwd weight shifting, verbal cues for upright head positioning. ) Comment Patient tolerated 2 and a half minutes of standing balance this date prior to wanting to ambulate, mild unsteadiness noted. Transfers Sit-Stand from bed: Supervision or setup Stand-Sit: Supervision or setup Gait Ambulation: Contact Guard Assist Distance Walked: 160 feet with four standing rest breaks. Patient was given several opportunities to stop and turn around or take a sitting rest break and patient declined. When we returned to her room she was wheezing, 02 saturation 90%, HR 89 bpm. Patient states with agitated tone "I cannot walk that far." PT did once again educate the patient it is important to tell us when she needs to rest, and that she was given opportunities to stop and rest. Education/Plan Education Education Needs: Pace Activity Verbal cues for walker management and upright head positioning, encouraged diaphragmatic breathing patient stated it doesn't help her. PT also asked patient if there is anything we can do to assist her not be as agitated with therapy activities and patient stated nothing. Assessment Patient was more short of air this date with ambulation and continues to be resistive to balance and higher level strengthening activities. Plan Continue with current plan as patient tolerates, continue to educate patient on the benefits of exercise and balance activities for her transition home. Patient will be seen: Daily Discharge Recommendations: Caregiver support Coding Time In: 1043 Time Out: 1104 Total Minutes: 21 Charges: [id number] Exercise Therp 15 m GORDON MEHTA PT Nov 12, 2016 11:49
--- NOTE | 2016-11-12 14:01 | OT Daily Note Inpatient (E) ---
OT Daily Treatment Service Date/Time 11/12/16, 13:59 Primary Diagnosis: (1) Chronic osteoarthritis ICD Code: 715.90 (2) Community acquired pneumonia ICD Code: J18.9 (3) SIRS (systemic inflammatory response syndrome) ICD Code: R65.10 (4) Weakness ICD Code: R53.1 Treatment Diagnosis: Onset Date: 11/03/16 Start of Care Date: Nov 09, 2016 Precaution/Isolation: Standard Precautions Fall Level: Low Risk 25-50 Current Activity: Agrees to participate General Informantion Pt reports feeling about the same. States she did a long walk with physical therapy and it almost made me out of breath. Pain Level: 0 Oxygen Needed: Room air Current Function Assessment Cognition Attention: Intact Memory: Impaired Safety/Judgement: Impaired Visual/Perceptual Skills Glassess: Yes (Lined trifocals ) Hearing: Impaired Hand Dominance Hand Dominance: Right Toileting Pt completed sit to stand transfer with SBA. Completed functional mobility to bathroom with SBA and use of FWW. Able to manage pants on own. Required assistance to hold long gown when transferring to sitting. Completed toileting hygiene following task and able to complete brief management with SBA. Following task, complete handwashing at sink with SBA. Additional Assessment/Comments Completed functional mobility from room to nursing station and back, approximately 68 feet. Following activity, therapist checked pt's O2 stat with it being 87 percent. Educated and discussed use of diaphragmatic breathing following task. Pt states, "Will you just let me catch my breath." After two minutes, pt oxygen level reached 90 percent. Educated and discussed with family use of energy conservation techniques and moving frequently throughout the day with rest breaks in between to improve performance during daily tasks. Pt and family verbalized understanding. Education/Assessment Education Provided: Energy conservation Education Evalution: Family included, Needs reinforcement Readiness to Learn: Fair Treatment Tolerance: Luther trmnt w/ complaints Problems Impacting Treatment: Deconditioning, Poorly motivated, SOB w/ activity Rehabilitation Potential: Fair Pt able to complete toileting task this date with SBA. POC Plan of Care Problems Identified: Activity Tolerance, ADLs, Balance, Lt UE Strength, Rt UE Strength, Safety Awareness Plan: Evaluation-OT, ADL/Self Care Management, Therapy Exercises, Therapy Activities, Pt/Family/Staff Education Frequency of OT: Five times weekly Duration of OT: Other (10 days ) Therapy to Include: ADL training, Balance with ADLs, Pt/family education, Therapeutic activities, UE strengthing Discharge Recommendations: Caregiver support Pt. Aware of Dx and Prognosis: Yes Pt. Aware of Risk & Benefit: Yes Goals: Discussed with patient, Discussed with family Short Term Goals STG Time Frame: 4 Days Will Perform Grooming: With Setup/SBA (met) Will Dress Upper Extremity: With Setup/SBA (min) Will Perform Funct Transfer: With Setup/SBA (sba) STG #1 Pt will participate in 15 min of ther-ex with use of energy conservation techniques as needed. MET AROM STG #2 Pt will verbalize and demonstrate understanding of energy conservation techniques to improve performance during daily activities. Family Manager Goals LTG Time Frame: 10 Days Will Dress Upper Extremity: Independently Will Dress Lower Extremity: Independently Will do Tub/Shower Transfer: With Setup/SBA Will Bathe Self: With Setup/SBA Will do Toilet Transfers: Independently Will do Toilieting: Independently Will Perform Kitchen Mobility: Independently LTG # 1 Pt will participate in 5 minute functional standing activity with use of energy conservation techniques and diaphragmatic breathing as needed with independence to improve performance during simple IADL tasks at home. MET with functional amb 150 CPT/G Codes Time In: 13:28 Time Out: 13:52 Total Minutes: 25 (12/26 ADL) CPT Codes: 66349 ADL TERRELL BARCLAY OT Nov 12, 2016 14:00
--- NOTE | 2016-11-12 14:36 | NUR ---
MULTIDISCIPLINARY MTG/DR. JOHN: Pt. admitted to [facility] and is doing well. PT. would like to go home. Pt. will need to work with PT/OT and then could possibly discharge. Pt. will need an exercise oximetry prior to discharge and that will determine when Pt. will be ready for discharge. No discharge needs identified at this time.
[2016-11-12 15:55] VITALS: BP 126/60
--- NOTE | 2016-11-12 16:29 | NUR ---
Pt. amb. in [place], on room air, approx. 100 ft.. Pt. c\o SOA, O2 sat's fell to 87%. O2 sat's 92% after 3 min. of rest.
--- NOTE | 2016-11-12 18:10 | NUR ---
Uneventful day shift. Patient tolerates therapies well. PRN Tylenol provided on one occasion for chronic lower back pain. Remains on roomair throughout shift. Call light in reach.
[2016-11-12] MEDS: QUEtiapine 25 MG (SEROquel) TAB IMMEDIATE RELEASE PO SCH (20:38)
[2016-11-12 23:58] VITALS: BP 127/64
--- NOTE | 2016-11-13 06:37 | NUR ---
Patient rests in bed throughout night, remains on room air. Up with stand by assistance to bathroom. No needs at this time.
[2016-11-13] MEDS: VIT A,C & E/LUTEIN/MINERALS (I-VITE) TABLET PO SCH (07:22)
[2016-11-13] MEDS: guaiFENesin ER 600 MG (MUCINEX) TAB PO SCH ×2 (07:22→20:17)
[2016-11-13] MEDS: PSYLLIUM SF (METAMUCIL) PACKET PO SCH (07:22)
--- NOTE | 2016-11-13 07:55 | NUR ---
Pt sitting upright in chair for bfst meal. Denies needs at this time. Call light within reach.
[2016-11-13 08:17] VITALS: BP 162/73
[2016-11-13] MEDS: ENOXAPARIN 40 MG/0.4 ML (LOVENOX) SYR SC SCH (08:25)
--- NOTE | 2016-11-13 09:58 | OT Daily Note Inpatient (E) ---
OT Daily Treatment Service Date/Time 11/13/16, 09:44 Primary Diagnosis: (1) Chronic osteoarthritis ICD Code: 715.90 (2) Community acquired pneumonia ICD Code: J18.9 (3) SIRS (systemic inflammatory response syndrome) ICD Code: R65.10 (4) Weakness ICD Code: R53.1 Treatment Diagnosis: Onset Date: 11/03/16 Start of Care Date: Nov 09, 2016 Precaution/Isolation: Standard Precautions Fall Level: Low Risk 25-50 Pt reports, "I do not understand why I have to do all this and why you want to make me get up so I have a loss of breath". Pt reports no i do not want to get dressed or brush my teeth. Pt later apologized to therapist and says she is not anxious to go home, but is nervous about what is going to happen to her next. Meeting with Dr. Segovia this afternoon. States she feels like she has gotten better since being here and is able to get up and do more things by herself. Pain Level: 0 Oxygen Needed: Room air O2 liters/minute: 0 Current Function Assessment Mental Status Mental Status: Agitated (Pt very agitated with participating in therapy at beginning of treatment. ) Cognition Attention: Intact Memory: Impaired Safety/Judgement: Impaired Visual/Perceptual Skills Glassess: Yes (Lined trifocals ) Hearing: Impaired Hand Dominance Hand Dominance: Right Endurance Activity Endurance: Instructions provided, Needs energy saving techn, Poor, Requires freq rest breaks Completed functional mobility to and from shower with FWW and SBA. Following activity, therapists measured pt's O2 level with it being 88. After 30 seconds, increased to 90. Discussed breathing technique and pt states she just needs to catch her breath first. Re-educated on energy conservation techniques. Pt more open to education this date and states she verbalizes understanding. Dressing Comment Upon set up from, pt able to don long gown with increased timed. Difficulty completing zipper, requiring positioning. Completed combing of hair in sitting with independence following set up. Education/Assessment Education Provided: Energy conservation Education Evalution: Family included, Needs reinforcement Readiness to Learn: Fair Barriers to Learning: Attitude toward rehab Treatment Tolerance: Luther trmnt w/ complaints Problems Impacting Treatment: Deconditioning, Poorly motivated, SOB w/ activity Rehabilitation Potential: Fair Pt agitated in beginning of therapy, but able to cooperate and participate after getting started. Feels like she has been getting better. POC Plan of Care Problems Identified: Activity Tolerance, ADLs, Balance, Lt UE Strength, Rt UE Strength, Safety Awareness Plan: Evaluation-OT, ADL/Self Care Management, Therapy Exercises, Therapy Activities, Pt/Family/Staff Education Frequency of OT: Five times weekly Duration of OT: Other (10 days ) Therapy to Include: ADL training, Balance with ADLs, Pt/family education, Therapeutic activities, UE strengthing Discharge Recommendations: Caregiver support Pt. Aware of Dx and Prognosis: Yes Pt. Aware of Risk & Benefit: Yes Goals: Discussed with patient, Discussed with family Short Term Goals STG Time Frame: 4 Days Will Perform Grooming: With Setup/SBA (met) Will Dress Upper Extremity: With Setup/SBA (min) Will Perform Funct Transfer: With Setup/SBA (sba) STG #1 Pt will participate in 15 min of ther-ex with use of energy conservation techniques as needed. MET AROM STG #2 Pt will verbalize and demonstrate understanding of energy conservation techniques to improve performance during daily activities. PROGRESS. Mcfp Goals LTG Time Frame: 10 Days Will Dress Upper Extremity: Independently Will Dress Lower Extremity: Independently Will do Tub/Shower Transfer: With Setup/SBA Will Bathe Self: With Setup/SBA Will do Toilet Transfers: Independently Will do Toilieting: Independently Will Perform Kitchen Mobility: Independently LTG # 1 Pt will participate in 5 minute functional standing activity with use of energy conservation techniques and diaphragmatic breathing as needed with independence to improve performance during simple IADL tasks at home. MET with functional amb 150 CPT/G Codes Time In: 8:30 Time Out: 8:48 Total Minutes: 18 (11/18 ADL) CPT Codes: 89384 ADL EA TERRELL LOBO OT Nov 13, 2016 09:58
--- NOTE | 2016-11-13 11:53 | PT Daily Note Inpatient (E) ---
PT Daily Treatment Service Date/Time 11/13/16, 11:50 Medical Diagnosis: (1) Chronic osteoarthritis ICD Code: 715.90 (2) Community acquired pneumonia ICD Code: J18.9 (3) SIRS (systemic inflammatory response syndrome) ICD Code: R65.10 (4) Weakness ICD Code: R53.1 Physical Therapy: (1) Weakness ICD Code: R53.1 (2) Physical deconditioning ICD Code: R53.81 (3) Chronic osteoarthritis ICD Code: 715.90 Precaution/Isolation: Standard Precautions Fall Level: Low Risk 25-50 Barriers Limiting Function: Activity Tolerance, Pain Subjective Oxygen Delivery: Room air O2 liters/minute: 0 Education/Plan Education Plan Patient will be seen: Daily Discharge Recommendations: Caregiver support Coding No Treatment Provide Reason: Refuses therapy (pt very agitated this morning, states "you're trying to make me sick with all this exercise and walking", "I'm going to have to talk to about this before I do any more", tried to reason with patient on the low level exercises we have been doing with her aware of her chronic back pain, pt waves me off, I asked her to settle down and we would try again this afternoon) JADYN SMITH BOTTLE FILLER Nov 13, 2016 11:53
--- NOTE | 2016-11-13 14:09 | NUR ---
Rosanne BRAGG brings patient to Dr. Segovia appointment via wheelchair
--- NOTE | 2016-11-13 15:15 | NUR ---
The patient returns to room 309. Daughter in the room to provide cares, otherwise Jina is up in chair reading and resting intermittently. She is able to make her needs known. No pain and no current distress.
--- NOTE | 2016-11-13 15:24 | PT Daily Note Inpatient (E) ---
PT Daily Treatment Service Date/Time 11/13/16, 15:19 Medical Diagnosis: (1) Chronic osteoarthritis ICD Code: 715.90 (2) Community acquired pneumonia ICD Code: J18.9 (3) SIRS (systemic inflammatory response syndrome) ICD Code: R65.10 (4) Weakness ICD Code: R53.1 Physical Therapy: (1) Weakness ICD Code: R53.1 (2) Physical deconditioning ICD Code: R53.81 (3) Chronic osteoarthritis ICD Code: 715.90 Precaution/Isolation: Standard Precautions Fall Level: Low Risk 25-50 Barriers Limiting Function: Activity Tolerance, Pain Subjective Pt back from appt with Dr. 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 profusely about her behavior this morning, apology accepted and pt agrees to exercises Pain Level: 0 Oxygen Delivery: Room air O2 liters/minute: 0 Treatments Sit, Stand, Supine: Sitting Extremity: Both Lower Extremity Assistance: AROM Repetition: 1 x 10 Exercise: Heel Slides, Hip Abduction, LAQ, Hip Flexion, TR, HR Gait pt fatigued after doctor appt, will walk with nsg tonight after dinner Education/Plan Education Assessment pt is cautious about increasing her activity level or doing to much that brings on a back spasm, tolerates seated exercises well with low reps Safety Awareness: Impaired Response to Treatment: Improving Plan Cont POC Patient will be seen: Daily Discharge Recommendations: Caregiver support Coding Time In: 1500 Time Out: 1515 Total Minutes: 15 Charges: 10412 Exercise Therp JADYN Ang PTA Nov 13, 2016 15:24
[2016-11-13 15:34] VITALS: BP 144/70
--- NOTE | 2016-11-13 19:10 | NUR ---
Report given to Raine ABBASI and care relinquished
[2016-11-13 19:25] VITALS: BP 133/70
[2016-11-13] MEDS: QUEtiapine 25 MG (SEROquel) TAB IMMEDIATE RELEASE PO SCH (21:52)
--- NOTE | 2016-11-13 21:55 | NUR ---
Pt. requests Seroquel at this time; pt. resting in recliner; watching tv; denies discomfort. Call light and H2O within reach.
[2016-11-13 23:44] VITALS: BP 126/68
--- NOTE | 2016-11-14 00:30 | NUR ---
Coughing noted to be rare to none; pt. rests quietly; resp are even and unlabored; call light within reach
--- NOTE | 2016-11-14 02:00 | NUR ---
Pt. resting quietly; resp are even and unlabored; appears to be sleeping; no distress noted. Bed alarm on for safety; call light and H2O within reach.
--- NOTE | 2016-11-14 06:20 | NUR ---
Pt. had an uneventful shift; appears to have rested well; continues to sleep. Pt. called PRN for standby assist last shift; very cooperative and pleasant. Call light and H2O within reach.
--- NOTE | 2016-11-14 07:45 | NUR ---
Patient sleeps until 0730. Ambulates to chair for breakfast with standby assist, steady gate. Denies pain, nausea, cough, or "worsening" SOA. Respirations even and non-labored on roomair. Saturation at this time = 93%. ZULMA sloan applied. Updated on plan of care for shift. Call light in reach.
[2016-11-14 08:09] VITALS: BP 149/75
[2016-11-14] MEDS: ENOXAPARIN 40 MG/0.4 ML (LOVENOX) SYR SC SCH (08:24)
[2016-11-14] MEDS: VIT A,C & E/LUTEIN/MINERALS (I-VITE) TABLET PO SCH (08:25)
[2016-11-14] MEDS: PSYLLIUM SF (METAMUCIL) PACKET PO SCH (08:25)
[2016-11-14] MEDS: guaiFENesin ER 600 MG (MUCINEX) TAB PO SCH ×2 (08:25→20:21)
--- NOTE | 2016-11-14 09:24 | PT Daily Note Inpatient (E) ---
PT Daily Treatment Service Date/Time 11/14/16, 09:14 Medical Diagnosis: (1) Chronic osteoarthritis ICD Code: 715.90 (2) Community acquired pneumonia ICD Code: J18.9 (3) SIRS (systemic inflammatory response syndrome) ICD Code: R65.10 (4) Weakness ICD Code: R53.1 Physical Therapy: (1) Weakness ICD Code: R53.1 (2) Physical deconditioning ICD Code: R53.81 (3) Chronic osteoarthritis ICD Code: 715.90 Precaution/Isolation: Standard Precautions Fall Level: Low Risk 25-50 Barriers Limiting Function: Activity Tolerance, Pain Subjective On first attempt, pt states she needs increased time to let food digest. On second attempt, PT finds pt in bathroom w/ DUMP GRADER staff. Pt then willing and agrees to PT interventions. Pt denies pain, denies stomach/digestive issues. Pain Level: 0 Oxygen Delivery: Room air O2 liters/minute: 0 Treatments Sit, Stand, Supine: Sitting Extremity: Both Lower Extremity Assistance: AROM, Other (manual resistance ROM exercises) Repetition: 2 x 10 Exercise: QS, GS, Heel Slides, Hip Abduction, Hip Adduction, LAQ, Hip Flexion, TR, HR, Shoulder Rolls Comment Pt able to perform all exercises w/ encouragement. Pt tells PT that she feels like she is able to go home and that she has everything she needs at home to continue to make gains. PT believes pt needs continued interventions to help improve activity tolerance, needed for ADLs. Pt very unmotivated and reports "I am so lonely back in [place]. I hardly ever have any visitor, everyone my age has . Dynamic Balance: Lateral Stepping (Pt performs dynamic standing balance while adjusting pillows in room chair for her to sit on. No LOB, but pt very fatigued following such movements. ) Transfers Stand-Sit: Contact Guard Assist (sit to stand and stand to sit CGA.) Gait Ambulation: Supervision or setup Distance Walked: 125 Pt SBA w/ ambulation w/ FWW. Pt needs cues throughout for posture, for position w/ FWW, and to focus on breathing. Pt SaO2 following bout of ambulation at 92% and visibly has increased respiration rate. PT believes, pt may benefit from Speech consultation to determine if pt has any issues w/ eating/drinking fluids - which may be contributing to her multiple episodes of pneumonia (per patient) and due to her c/o of digestive issues on this date w/ PT. Assistive Device: FWW Gait Assist: Supervision Required Gait Training: Limitations: SOB, Fatigue Education/Plan Education Education Needs: Use of Devices/Equipment (Education to stay within FWW and to maintain upright position/posture during ambulation.) Assessment PT believes, pt may benefit from Speech consultation to determine if pt has any issues w/ eating/drinking fluids - which may be contributing to her multiple episodes of pneumonia (per patient) and due to her c/o of digestive issues on this date w/ PT. Pt also to continue PT interventions to improve activity tolerance and to work on other balance deficits. Plan Patient will be seen: Daily Discharge Recommendations: Caregiver support Coding Time In: 08 Time Out: 09 Total Minutes: 25 Charges: 56523 Exercise Therp 15 m (11/15 [place]), 43603 Ther Activity (11/10 TA) NILESH HINES PT Nov 14, 2016 09:24
[2016-11-14 15:37] VITALS: BP 125/66
[2016-11-14] MEDS: QUEtiapine 25 MG (SEROquel) TAB IMMEDIATE RELEASE PO SCH (20:21)
--- NOTE | 2016-11-14 20:30 | NUR ---
Pt. takes PO meds without difficulty; resting in recliner; watching tv; denies discomfort; smiles and is very pleasant. Call light and H2O within reach.
[2016-11-15 00:49] VITALS: BP 150/68
--- NOTE | 2016-11-15 06:42 | NUR ---
Pt. had an unremarkable shift; called for assist PRN; denies discomfort. Cough noted to be greatly decreased/rare. Respirations have been even and unlabored on room air. Call light and H2O within reach.
[2016-11-15 07:48] VITALS: BP 151/70
[2016-11-15] MEDS: ENOXAPARIN 40 MG/0.4 ML (LOVENOX) SYR SC SCH (08:46)
[2016-11-15] MEDS: VIT A,C & E/LUTEIN/MINERALS (I-VITE) TABLET PO SCH (08:46)
[2016-11-15] MEDS: PSYLLIUM SF (METAMUCIL) PACKET PO SCH (08:46)
[2016-11-15] MEDS: guaiFENesin ER 600 MG (MUCINEX) TAB PO SCH ×2 (08:47→21:40)
[2016-11-15 15:25] VITALS: BP 126/73
--- NOTE | 2016-11-15 18:12 | NUR ---
Uneventful day shift. Patient sits up in recliner for all meals. Ambulates 150 feet with standby assist and walker in [place] this am with NUB CARD TENDER. Does ambulate across [place] to shower this afternoon. Remains on roomair. Call light in reach.
[2016-11-15] MEDS: QUEtiapine 25 MG (SEROquel) TAB IMMEDIATE RELEASE PO SCH (21:40)
[2016-11-16 00:04] VITALS: BP 116/68
--- NOTE | 2016-11-16 06:05 | NUR ---
Uneventful shift. Pt rest w/o complaints. Calls for assist to bathroom as needed. Denies pain.
--- NOTE | 2016-11-16 07:31 | NUR ---
Pt up in recliner at time of assessment. Denies any pain or discomfort at this time. Pt reports sleeping well over night. Denies any needs or concerns at this time. Will continue to monitor.
[2016-11-16 07:36] VITALS: BP 157/77
[2016-11-16] MEDS: ENOXAPARIN 40 MG/0.4 ML (LOVENOX) SYR SC SCH (08:10)
[2016-11-16] MEDS: PSYLLIUM SF (METAMUCIL) PACKET PO SCH (08:10)
[2016-11-16] MEDS: VIT A,C & E/LUTEIN/MINERALS (I-VITE) TABLET PO SCH (08:10)
[2016-11-16] MEDS: guaiFENesin ER 600 MG (MUCINEX) TAB PO SCH (08:11)
--- NOTE | 2016-11-16 10:50 | NUR ---
OXIMETRY Pt was walked assisted around unit. Starting at 92%, went up to 94% and then down to 93% as we got back to the room. Pt refused to walk any further. stated that assisted around unit is way more than she ever walks at home.
--- NOTE | 2016-11-16 11:44 | Physical Therapy Evaluation(E) ---
Discharge Summary Service Date/Time 11/16/16, 11:26 Primary Diagnosis: (1) Chronic osteoarthritis ICD Code: 715.90 (2) Community acquired pneumonia ICD Code: J18.9 (3) SIRS (systemic inflammatory response syndrome) ICD Code: R65.10 (4) Weakness ICD Code: R53.1 Treatment Diagnosis: (1) Weakness ICD Code: R53.1 (2) Physical deconditioning ICD Code: R53.81 (3) Chronic osteoarthritis ICD Code: 715.90 Onset Date: 11/03/2016 Start of Service Date: Nov 09, 2016 Summary of Progress Summary Comment The PT had been informed the patient is being discharged from the hospital this date. The patient has required motivation to participate in therapy activities over the course of her stay which has limited her progression of activities. She has been educated on a HEP for home and given a written copy of this with pictures which included seated ankle pumps, LAQ, and hip flexion AROM in sitting. The patient was instructed on limiting repetitions to her tolerance secondary to her concern over back spasms. Distance Walked in Feet The patient ambulates up to 150 feet on variable 02 use, with last bout of ambulation being 125 feet with FWW without 02, maintaining sats above 92%. Assistive Device: FWW Assist: Supervision Required Gait Description: Safe w/ Assistive Device, Flexed Trunk (c/o back pain with gait, encouraged pt to walk closer to her FWW with a more upright posture, pt does not take advice) PT reassessed lower extremity strength: bialteral hip flexion 4+/5, knee flexion 4+/5, knee extension 5/5 bilaterally, ankle dorsiflexion 4/5. Grade 2 pitting edema in lower extremities noted this date. PT discussed HEP with patient, and keeping mobile at home to maintain her strength. Patient states she has set up for meals with her and her daughter making freezer meals. PT does recommend home health, patient states she doesn't need that at this time. Educated patient on diaphragmatic breathing and continuing to work on that method. . Gait Limitations: SOB, Fatigue Patient continues to have fatigue with ambulation over 100 feet. Transfer STG and Status Rolling: Modified Walsh Sit-Supine: Modified Walsh Sitting Edge of Bed: Modified Walsh Supine-Sit: Modified Walsh Sit-Stand from bed: Modified Walsh Goal Status at Discharge: Goal Met Stand-Sit: Modified Walsh Goal Status at Discharge: Goal Met Ambulation: Modified Walsh Goal Status at Discharge: Goal Partially Met Distance Walked: 125 feet with SBA using FWW. Barriers Limiting Function: Activity Tolerance, Pain Comment Patient was always seated in recliner during sessions therefore bed mobility was not assessed. Transfer LTG and Status Ambulation: Modified Walsh (300 feet with FWW maintaining 02 saturation above 90%. ) Comment Additional fci goals: 1) The patient will score a minimum of 19/28 on the Tinetti Balance Assessment - not met. 2) The patient will improved standing tolerance to a minimum of 5 minutes - met. 3) The patient will tolerate a minimum of 10 minutes of seated/standing activity with no more than 2 rest breaks to demonstrate improved activity tolerance. - met Plan of Care Goals and Status STG: Plan-Treatment Functional: Trans. Safe w/ AD Goal Status at Discharge: Goal Met Discharge Recommendations: Caregiver support Service Recommendations: Continue Service (Patient would benefit from additional therapy services, although she has required encouragment and frequent education on the benefits of PT. ) Coding Time In: 1102 Time Out: 1117 Total Minutes: 15 Patient seated in recliner with call light in reach and denied any further needs at this time. GORDON MEHTA PT Nov 16, 2016 11:44
--- NOTE | 2016-11-16 14:06 | NUR ---
MULTIDISCIPLINARY MTG/DR. JOHN: Pt. doing well. RT completed an ambulatory pulse ox today and was at 92%-94%. Pt. to discharge today. No discharge needs identified at this time.
[2016-11-16] MEDS ORDERED: NAPR250T34 PO (14:09)
--- NOTE | 2016-11-16 14:14 | Discharge Instructions (E) ---
Discharge Instructions Instructions * You were treated in nursing home with physical therapy and occupational. Your strength and endurance have improved and you are going home. * You are continuing to recover from pneumonia. Cough will usually be the last symptom to resolve. You had an oxygen test the day of discharge that showed your oxygen level was stable when exercising. You can take guaifenesin for 5 more days, then stop if you are improving. You may also take [id number] dextromethorphan (Robitussin DM) for cough. * To follow-up your pneumonia recovery, have a chest x-ray next week. This [facility] be done at [facility] or at Dr. Cornell' office. Take the printed prescription for the x-ray to that visit. * After you have fully recovered from pneumonia, ask your primary care doctor about whether or not a pulmonary function test should be ordered to check your lungs for disorders such as COPD. Activity Instructions As tolerated. Doctor's Appointment Follow-up with your primary care doctor in 3-5 days. Discharge Diet: Regular FRANCHESCA JOHN MD Nov 16, 2016 14:14
--- NOTE | 2016-11-16 15:15 | NUR ---
DISMISSAL Pt in room 309 was dismissed from hospital at 1515. Was in stable condition at time of dismissal and was sent with all personal belongings. Discharge instructions and medication list was gone over with patient. Pt denies any questions or concerns. Pt was taken off unit via wheel chair and was accompanied by Hospital staff member and her son who will be transporting her back to her home.
--- NOTE | 2016-11-16 15:21 | Discharge Summary (E) ---
Discharge Summary (E) Admit Date/Time Nov 09, 2016 at 07:25 Discharge Date/Time Nov 16, 2016 Admitting Provider Shubham Mansfield MD Primary Care Provider Allan Cornell MD Attending Provider Shubham Mansfield MD Consulting Provider History and Present Illness See History and Physical for complete details. Jina Campbell is a 89 year old female [facility] to [facility]09 after acute hospitalization at this facility 11/03-11/08 for community acquired pneumonia. She was felt to benefit from close medical supervision of her resolving acute medical problems as well as PT/OT for physical deconditioning. She did improve with continued breathing treatments and PT/OT. Breathing treatments were de-escalated. The day of discharge she ambulated well on room air and exercise oximetry was normal. She was discharged home in improved, stable condition. Hospital Course and Treatment * Physical Deconditioning: Improved with PT/OT eval and treat * Acute Respiratory Distress: Resolved. Recurrent, likely due to mucus plugging in the setting of resolving pneumonia on admit. Oxygen protocol. IS. Guaifenesin. Acapella. At discharge, had a normal exercise oximetry test. * Chest Pain: Resolved. Mild on admit, and likely due to respiratory event that precipitated skilled admit. * Bronchospasm: Resolved. Gave duoneb scheduled, albuterol PRN. At discharge, no breathing treatments needed. Consider PFT in 4-6 weeks after recovery from this pneumonia. * Cough: Dextromethorphan, guaifenesin. Continued at discharge. CHRONIC ISSUES * HTN: Metoprolol * Constipation: Bowel regimen * Insomnia: Quetiapine RESOLVED ISSUES * Community Acquired Pneumonia due to Haemophilus influenzae: On the basis of sputum culture from acute hospitalization. Blood culture negative during acute stay was negative, as was respiratory PCR panel. Continue acapella. Guaifenesin , cefdinir course extended x 4 days. Follow-up CXR in 1 weeks. Discharge Physicial Exam General Vital Signs Date Time Temp Pulse Resp B/P Pulse Ox O2 Delivery O2 Flow Rate FiO2 11/16/16 07:36 97.5 81 18 157/77 92 Room air 11/11/16 09:37 GEN: Awake, alert, interactive. NAD at present. Dressed in home clothes. HEENT: EOMI, clear sclerae, mildly dry oral mucosa. CV: Regular without significant murmur. LUNGS: Diminished breath sounds but air movement audible in all lung weber. ABD: Soft, NT/ND with normal bowel sounds. EXTR: No edema. Normal peripheral pulses. Warm, dry, well-perfused. INTEG: No rash. Age related changes. Dry skin. Pale complexion. NEURO: No focal motor neuro deficit. Laboratory/Radiology Data Laboratory Results-14 Days 11/09/16 08:37: Troponin I < 0.012 11/09/16 09:40: Urine Bilirubin Negative, Urine Blood Negative, Urine Clarity Clear, Urine Collection Type Clean catch, Urine Color Yellow, Urine Glucose (UA) Negative, Urine Ketones Negative, Urine Leukocyte Esterase Negative, Urine Nitrite Negative, Urine Protein Negative, Urine Specific [place] 1.020, Urine Urobilinogen 0.2, Urine pH 6.0 11/10/16 05:45: Absolute Band Neutrophils 0.2, Albumin 2.9L, Anion Gap 11.3, Band Neutrophils % 3, Basophils # (Auto) , Basophils # (Manual) 0.0, Basophils % (Manual) 0, Basophils (%) (Auto) , Blood Morphology Comment Normal, Blood Urea Nitrogen 24#H , C-Reactive Protein 7.10H, Calcium Level 8.7L, Carbon Dioxide Level 29, Chloride Level 101, Creatinine 0.63, Differential Total Cells Counted 100, Eosinophils # 0.0, Eosinophils # (Auto) , Eosinophils % (Manual) 0, Eosinophils (%) (Auto) , Estimat Glomerular Filtration Rate 107.9, Estimated GFR (Non- 89.2, Glucose Level 143#H, Hematocrit 29.10L, Hemoglobin 10.0L , Lymphocytes # 0.4, Lymphocytes # (Auto) , Lymphocytes % (Manual) 6L, Lymphocytes (%) (Auto) , Mean Corpuscular Hemoglobin 31.8, Mean Corpuscular Hemoglobin Concent 34.4, Mean Corpuscular Volume 93, Mean Platelet Volume 10.0H , Metamyelocytes % 0, Monocytes # 0.0, Monocytes # (Auto) , Monocytes % (Manual ) 0L, Monocytes (%) (Auto) , Neutrophils # 5.6, Neutrophils # (Auto) , Neutrophils (%) (Auto) , Phosphorus Level 3.6, Platelet Count 168#, Potassium Level 4.1, Red Blood Count 3.14L, Red Cell Distribution Width 13.9, Segmented Neutrophils % 91H, Sodium Level 137, White Blood Count 6.15 IMAGING REFERENCE 11/03/16 CHEST 1 VIEW, AP/PA ONLY* INDICATION: Shortness of breath. Frontal chest obtained at 1:38 p.m. and compared with 12/03/2011 Heart is mildly enlarged. Aorta is tortuous. There are mild chronic-appearing increased interstitial markings. There is no pneumothorax or pleural fluid. There is some infiltrate or scarring in the right base which appears chronic or recurrent compared with 12/03/2011. Severe underlying degenerative changes of both shoulders. IMPRESSION: Mild cardiomegaly with tortuous aorta. Chronic-appearing increased interstitial markings. There is some infiltrate or scarring in the right base which appears chronic or recurrent compared with 12/03/2011. Suggest followup as clinically warranted. Discharge Disposition Discharged home in improved, stable condition. Instructions * You were treated in [facility] with physical therapy and occupational. Your strength and endurance have improved and you are going home. * You are continuing to recover from pneumonia. Cough will usually be the last symptom to resolve. You had an oxygen test the day of discharge that showed your oxygen level was stable when exercising. You can take guaifenesin for 5 more days, then stop if you are improving. You may also take [id number] dextromethorphan (Robitussin DM) for cough. * To follow-up your pneumonia recovery, have a chest x-ray next week. This can be done at [facility] or at Dr. Cornell' office. Take the printed prescription for the x-ray to that visit. * After you have fully recovered from pneumonia, ask your primary care doctor about whether or not a pulmonary function test should be ordered to check your lungs for disorders such as COPD. Activity Instructions As tolerated. Appointments Follow-up with your primary care doctor in 3-5 days. Discharge Diet: Regular Discharge Medications New Medications: Naproxen (Naproxen) 250 Mg Tablet 250 MG PO Q6H PRN pain #0 Ref 0 TAB Continued Medications: Dextromethorphan (Robitussin Pediatric 7.5mg/5ml) 7.5 Mg/5 Ml Syrup 15 MG PO Q4H PRN COUGH #1 Ref 0 BTL Guaifenesin (Mucinex) 600 Mg Tab 1200 MG PO BID Take for 5 more days, then stop of cough and mucus production have improved. #0 Ref 0 TAB Metoprolol Succinate (Metoprolol Succinate) 25 Mg Tab.er.24h 25 MG PO DAILY TAB Mu-Vits-Min Th/Lycopene/Lutein (Centrum Silver Tablet) 1 Each Tablet 1 EACH PO DAILY TAB Psyllium Husk (Metamucil) 660 Gm Powder 660 GM PO DAILY Quetiapine Fumarate (Seroquel) 25 Mg Tablet 25 MG PO HS Discontinued Medications: Cefdinir (Cefdinir) 300 Mg Capsule 300 MG PO BID Infection #4 Ref 0 CAP Follow up New Orders: CXR (CHEST PA/LAT (2 VIEW)* - 11/23/16 Discharge Diagnosis See list above. Problems: Copies to: End of Report . SHUBHAM MANSFIELD MD Nov 16, 2016 15:21
--- NOTE | 2016-11-30 13:48 | OT Therapy Evaluation (E) ---
Discharge Summary Service Date/Time 11/30/16, 13:46 Primary Diagnosis: (1) Chronic osteoarthritis ICD Code: 715.90 (2) Community acquired pneumonia ICD Code: J18.9 (3) SIRS (systemic inflammatory response syndrome) ICD Code: R65.10 (4) Weakness ICD Code: R53.1 Treatment Diagnosis: Onset Date: 11/03/16 Start of Care Date: Nov 09, 2016 Summary of Discharge Therapy Comments Pt was seen for 5 occupational therapy visits to improve independence with self care tasks for safe return home. Pt required maximum encouragement to participate in therapy. Able to improve independence and safety with self care tasks. Short Term Goals/Status Will Perform Grooming: With Setup/SBA (GOAL MET.) Will Dress Upper Extremity: With Setup/SBA (NOT MET. Minimum assistance.) Will Perform Functional Transf: With Setup/SBA (GOAL MET.) STG #1 Pt will participate in 15 min of ther-ex with use of energy conservation techniques as needed. NOT MET. STG #2 Pt will verbalize and demonstrate understanding of energy conservation techniques to improve performance during daily activities. GOAL MET. Education provided to pt and family. Aquatic Habitat Biologist Goals/ Status Will Dress Upper Extremity: Independently (NOT MET.) Will Dress Lower Extremity: Independently (NOT MET.) Will do Tub/Shower Transfer: With Setup/SBA (CGA.) Will Bathe Self: With Setup/SBA (NOT ASSESSED.) Will do Toilet Transfers: Independently (NOT MET. SBA.) Will do Toilieting: Independently (NOT MET. SBA.) Will Perform Kitchen Mobility: Independently (NOT ASSESSED.) LTG # 1 Pt will participate in 5 minute functional standing activity with use of energy conservation techniques and diaphragmatic breathing as needed with independence to improve performance during simple IADL tasks at home. PROGRESS. Required cueing for breathing techniques to ease shortness of breath. Discharge Recommendations: Home w/ Family Support TERRELL LOBO OT Nov 30, 2016 13:48
== END 2016-11-16 15:15 | disposition home or self-care (01) | DRG 194 ==
LOC: UNDOADMIN 07:04 → MED/SURG 07:04
PROVIDERS: ADMIT Internal Medicine; ATTEND Internal Medicine
DX: J14 Pneumonia due to Hemophilus influenzae (principal); C91.10 Chronic lymphocytic leukemia of B-cell type not having achieved remission; Z66 Do not resuscitate; I10 Essential (primary) hypertension; J98.01 Acute bronchospasm; K59.00 Constipation, unspecified; G47.00 Insomnia, unspecified; T17.990A Other foreign object in respiratory tract, part unspecified in causing asphyxiation, initial encounter; X58.XXXA Exposure to other specified factors, initial encounter; Z87.891 Personal history of nicotine dependence
CPT/HCPCS: 36415; 80069; 81003; 84484; 85025; 86140; 94640; 94669; 94760; 94761